=== PATIENT | female | born 1985 | race Caucasian/White ===

== ENCOUNTER 2021-07-28 10:52 | Emergency (ER) | payer MEDICARE, MEDICAID, SELFPAY ==
[2021-07-28 11:18] VITALS: BP 132/79; PULSE 100; RESP 19; TEMP 36.6; O2SAT 100; BMI 34.5
[2021-07-28 12:00] VITALS: BP 122/85; PULSE 98; RESP 18; TEMP 36.9; O2SAT 96
--- NOTE | 2021-07-28 12:06 | ED_ITS ---
HPI - Psych General Chief Complaint: Psychiatric Symptoms Stated Complaint: Crisis Time Seen by Provider: 07/28/21 12:04 Source: patient Mode of arrival: ambulatory Limitations: no limitations History of Present Illness HPI Narrative: 35-year-old female with a history of opiate use disorder, depression here with reports of feeling depressed and anxious after several recent losses. Patient is coming from [facility] where she is currently living after going through detox for OUD. She is on methadone 100 mg daily. Prior to this she was at [facility] for dual diagnosis. She is from the [facility] and her therapist and psychiatrist are out there. She missed her recent appointment with her psychiatrist and they did not refill her Klonopin. Her last dose of Klonopin was 6 days ago. Under review of PROPOSAL REVIEW ANALYST the patient did fill a 16 day prescription on July 05. Patient tells me she is also running low on her clonidine. She tells me that she lost her mother last year, this week has lost 2 friends to overdoses. She is feeling anxious and depressed but denies any suicidal or homicidal ideations. She has no physical complaints. Related Data Previous Rx's Medication Instructions Recorded clonazepam 0.5 mg tablet 0.5 mg PO BID PRN #8 tab 07/28/21 Allergies Allergy/AdvReac Type Severity Reaction Status Date / Time Unable to Assess Allergy Verified 07/28/21 12:37 Review of Systems Review of Systems: Yes all other systems are reviewed and are negative Constitutional: Constitutional: Reports no additional constitutional complaints, Denies body ache(s), Denies chills, Denies fever(s), Denies headache(s) and Denies weakness Eyes: Eyes: Reports no additional eye complaints and Denies change in vision ENT: Reports system reviewed and no additional complaints, except as documented, Denies dizziness, Denies headache(s), Denies nasal congestion, Denies nasal discharge and Denies neck pain Cardiovascular: Cardiovascular: Reports no additional cardiovascular complaints, Denies chest pain, Denies leg edema and Denies dyspnea Respiratory: Respiratory: Reports no additional respiratory complaints, Denies cough and Denies dyspnea Gastrointestinal: Gastrointestinal: Reports no additional gastrointestinal complaints, Denies abdominal pain, Denies diarrhea, Denies nausea and Denies vomiting Genitourinary: Genitourinary: Reports no additional female genitourinary complaints and Denies urinary incontinence Musculoskeletal: Musculoskeletal: Reports no additional musculoskeletal complaints, Denies back pain, Denies arthralgias, Denies joint swelling, Denies neck pain, Denies numbness and Denies tingling Integumentary/Breasts: Skin/Breast: Reports system reviewed and no additional complaints, except as docu and Denies rash Neurologic: Reports system reviewed and no additional complaints, except as documented, Denies Abnormal speech present, Denies dizziness, Denies headache(s), Denies numbness, Denies tingling and Denies weakness Psychiatric: Psychiatric: Reports anxiety, Reports depression, Denies homicidal ideation and Denies suicidal ideation [facility] Past Medical History Attestation statement: The following information was validated with the patient. Source: old records reviewed and nursing notes reviewed Medical History Anxiety Depression PTSD (post-traumatic stress disorder) Social History Social History Advance Directives: No Advance Directives Information Provided: No Patient : No Physical Exam Vital Signs: Vital Signs: Last Vital Signs Temp 98.4 F 07/28/21 12:00 Pulse 98 07/28/21 12:00 Resp 18 07/28/21 12:00 BP 122/85 07/28/21 12:00 Pulse Ox 96 07/28/21 12:00 BMI result Body Mass Index 34.5 Const: General: cooperative, healthy appearing, comfortable and no acute distress Orientation/consciousness: patient oriented x3 Limitations: no limitations HENMT: Head: Yes normal to inspection Ears: hearing grossly normal bilaterally General nose exam: Normal external nose present Face and sinus: Yes normal facial exam Mouth: Normal oral and palatal mucosa present Throat: Yes posterior oropharynx normal Eyes: General: appearance normal, both eyes and all related structures Pupils: Equal, round and reactive pupils present Neck: Neck: Yes normal visual inspection Chest: Chest palpation & inspection: normal inspection of the chest Resp: Effort & Inspection: normal respiratory effort Auscultation: clear to auscultation bilaterally Cardio: Rate: regular rate Rhythm: regular rhythm Peripheral pulses: Peripheral pulses 2+ throughout GI: Inspection: Yes normal to inspection Palpation (GI): Soft to palpation and nontender Auscultation: normal bowel sounds Back/Spine/Pelvis: Thoracic/Lumbar Spine: thoracic and lumbar spine normal to inspection Skin: General skin exam: no rashes or lesions noted Neuro: General: patient oriented x3, no focal motor deficits and normal sensation to monofilament Cranial nerves: Yes CN's II-XII intact bilaterally and Yes Equal, round and reactive pupils present Cognition (Neuro): normal cognition Speech: No Abnormal speech present Gait exam (Neuro): Normal gait present Motor exam (neuro): 5/5 motor strength present throughout Extrem: General: Yes normal to inspection Course Course Course Narrative: 35-year-old female here with reports of feeling anxious, depressed with multiple friends who recently. Also ran out of her HealthLokpin and is requesting a refill until she is able to see her psychiatrist. No suicidal or homicidal ideations. No physical complaints. Will obtain BENITEZ, have care team consult 155-care team spoke to staff at [facility]. patient made suicidal statements there this morning although now denying. utox +fentanyl/benzo although patient denies using she is sleepy and care team feels she needs to be evaluated when clinically sober. N consult placed. 1999-patient re-evaluated by care team and plan for discharge home. There are no reports of suicidal ideations. I did call and speak to the staff at the [facility]. The patient does take oral medications but this is supervised by staff at the center. They tell me the patient has adequate supply of clonidine. Her last dose of clonazepam was July 20 after the patient completed a 1 week self taper. Patient has no signs or symptoms concerning for benzo withdrawal. She tells me she was taking 1 mg b.i.d. prior to this taper, she is feeling quite anxious with multiple stressors. Therefore we discussed providing a small prescription for p.r.n. Klonopin. Plan for discharge back to the [facility]. Reviewed worrisome signs and symptoms of when to return to the emergency department. Comfortable discharge home. MDM - Psych Medical Records Attestation: I reviewed the patient's medical records. Lab Data Attestation: I reviewed the patient's lab results. Labs: Lab Results 07/28/21 Range/Units 13:23 Urine Opiates Screen Not Detected (Not Detect) Urine Fentanyl Screen POSITIVE H (Not Detect) Ur Barbiturates Screen Not Detected (Not Detect) Ur Phencyclidine Scrn Not Detected (Not Detect) Ur Amphetamines Screen Not Detected (Not Detect) U Benzodiazepines Scrn POSITIVE H (Not Detect) Urine Cocaine Screen Not Detected (Not Detect) U Marijuana (THC) Screen Not Detected (Not Detect) Discharge Plan Discharge Clinical Impression: Opioid use disorder, Acute anxiety Patient Disposition: Home, Self-Care Instructions: Anxiety (ED), Opioid Use Disorder (ED) Prescriptions: New clonazepam 0.5 mg tablet 0.5 mg PO BID PRN (Reason: anxiety) Qty: 8 0RF Referrals: Physician,Nonstaff [Primary Care Provider] - 2 days Interventions: ED Discharge Assessment Last Done: 07/28/21 19:04 Discharge Date/Time: 07/28/21 19:20
--- NOTE | 2021-07-28 13:15 | PC.NURSE ---
pt a&ox3, vss, denies HI/SI. pt had tapering off of psych meds under the supervision of her psychiatrist, increased life stressors over the past week (mother and friend passing away). would like to get back on her medication, but doesn't have an appt yet. pt has a hx of drug use, and has had an increased desire to use due to increased anxiety and lack of psych meds. pt has been clean for 9 days and is living at a [facility].
[2021-07-28 14:00] LABS: Amphetamine Screen Urine Not Detected (Not Detect); Barbiturates, Urine Not Detected (Not Detect); Benzodiazepines Screen Urine POSITIVE (Not Detect); Cannabinoid Screen Urine Not Detected (Not Detect); Cocaine Screen Urine Not Detected (Not Detect); Fentanyl, urine POSITIVE (Not Detect); Opiate Screen Urine Not Detected (Not Detect); Phencyclidine Screen Urine Not Detected (Not Detect)
--- NOTE | 2021-07-28 17:10 | MHC.CARE ---
1500 CARE Team met with patient in [facility] for interview; she was resting but woke quickly, was oriented and was engaged though appeared sedated and had some difficulty providing a thorough rational for why she was here and what she needed. Asked for printed resources for grief counseling and then stated she would go to a group through her outpatient providers via zoom. Reported that she took herself off of Klonopin and regretted that and would like a bridge prescription until she can speak to her psychiatrist. Patient explained that she lost her mother in 2019 and recently found out that her best friend and was emotional talking about that. Explained that she has been at the [facility] for [facility], did not go through a CSS or TSS which is the typical treatment process prior to this level of care and patient feels that she is unable to manage what they are asking her to do. Maintained that she is not suicidal and does not want to end her life though feels overwhelmed and hopeless. Several calls with [facility] staff, Instructional Support Assistant, Zora reported that patient reported to her this morning that she did not want to live anymore, doesn?t care anymore and has given up. This was concerning to staff who feel that patient?s mental health is still too fragile for this level of care, believe that she needs to in a CSS or TSS. Advised that patient has denied suicidal ideation, plan or intention. They advocated for a respite admission with the hope of giving them a few days to arrange a higher level of treatment. At this time patient is too tired for a comprehensive interview, she should be referred to [facility] Crisis with the goal of respite. If they are unable to evaluate patient here, she can discharge back to the program and arrange for a mobile or to bring patient to the [facility] office. Record Changer, Renee Jacobsen [facility] and ED provider, Gilda Huynh, MELLISSA and nursing staff all updated and in agreement with plan. [phone] Vamsi are the staff tonight at the [facility]
--- NOTE | 2021-07-28 17:16 | PC.NURSE ---
[facility] referral completed.
--- NOTE | 2021-07-28 19:27 | MHC.CARE ---
5:48 PM CARE team met with patient in 8 for follow up to consult?attempted earlier in the day, patient reports she was born in the [place] area, however raised?in the [place] area and graduated high school. She reports she is an only child and her father ? from an overdosed when she was 7 years old, she reports her mother in 2019. She reports she was placed at [facility] in [place] from [facility] over a week ago and relapsed on heroin IV last Sunday after 2 1/2 years of sobriety, she does go to the methadone clinic daily. She reports she recently stopped taking her klonopin abruptly 6 days ago shortly after arriving to [facility]. reports today she found out her best friend overdosed and passed and? and states I was upset this morning and really felt like using, I was crying . She reports staff at [facility] felt she should come to ER to talk to someone and get resources for Grief, staff also recommended a respite admission. Mallory has declined respite admission and is requesting to return to [facility], she denies any suicidal or homicidal ideation plan or intent, she denies any audio or visual hallucinations and does not appear to be responding to internal stimuli currently. She denies any prior history of suicide attempts or self harming behaviors and reports she feels safe returning back to her program. She reports she has outpatient providers at [facility] and sees [facility] for medications and has been set up with a new therapists and reports they also have grief groups via zoom she can participate in for additional support. CARE team called and spoke with [facility] staff Yvonne, she reports split and drum room supervisor Iveth wants to be called, CARE team called and discussed discharge plan back to program and Mallory will follow up with outpatient community providers. Gilda Huynh [employer] is aware of plan and in agreement with discharge.
== END 2021-07-28 19:20 | disposition home or self-care (01) ==
PROVIDERS: Nurse Practitioner Family; Emergency Provider Emergency Medicine
DX: F11.20 Opioid dependence, uncomplicated (principal); F32.A Depression, unspecified; F41.9 Anxiety disorder, unspecified; F43.10 Post-traumatic stress disorder, unspecified
CPT/HCPCS: 80307; 99284

== ENCOUNTER 2024-12-19 17:59 | Emergency (ER) | payer OTHER, SELFPAY ==
[2024-12-19 18:41] VITALS: BP 118/76; PULSE 86; RESP 16; TEMP 36.9; O2SAT 98
[2024-12-19 19:42] VITALS: BP 101/76; PULSE 87; TEMP 36.5; O2SAT 97
--- OUTSIDE RECORDS SUMMARY | 2024-12-19 19:56 | XMS_ITS | Clinical Summary ---
Author Organization [facility] Address [address] [place] [address] Care Team Providers Care Search Engine Optimization Manager Name Role Phone Myrna Haddad MD Primary Care Provider Source Comments PLEASE NOTE, if this patient is a minor, it may be UNLAWFUL to discuss sensitive information that is contained in these records (such as FAMILY PLANNING, MENTAL HEALTH or SUBSTANCE ABUSE) with the minor patient's parent or other person without the patient's specific authorization.[facility] Allergies Active Allergy Reactions Criticality Noted Date Comments Quetiapine 10/10/2023 Other Reaction(s): Unknown Level of certainty: Moderately Certain Medications SENNA 8.6 mg tabletIndications :Drug induced constipation Take 1 Tablet by mouth nightly at bedtime as needed for constipation 04/23/20 23 Active furosemide (LASIX) 20 mg tablet Take 1 Tablet by mouth once daily 90 Tablet 05/31/19 24 Active albuterol (PROVENTIL) 2.5 mg /3 mL (0.083 %) nebulizer solution Take 3 mL by nebulization every 6 (six) hours as needed for wheezing 90 mL 3 10/22/19 24 Active phenazopyridine (PYRIDIUM) 100 mg tabletIndications :Nephrolithiasis Take 1 Tablet by mouth 3 (three) times daily as needed (kidney stone pain) -- up to 3 days per month 30 Tablet 1 03/28/20 24 Active pyridostigmine (MESTINON) 60 mg tablet TAKE 1 TABLET BY MOUTH 3 TIMES A DAY NEEDED (MAX 3 DAYS PER MONTH 04/06/20 24 Active food supplemt, lactose-reduced (NUTRI-DRINK, ENSURE) liquidIndications :Chronic hepatitis C with cirrhosis ([facility]),Weight loss, unintentional Ensure shakes (or comparable brand), chocolate flavor. Drink 3 times daily to maintain weight. Dx B18.2,K74.60, R63.4 51257 mL 11 06/26/19 25 Active methadone 10 mg/5 mL solution Take 55 mL by mouth daily. 06/26/19 25 Active albuterol HFA (VENTOLIN HFA) 90 mcg/actuation inhalerIndication s:Simple chronic bronchitis ([facility]) INHALE 2 PUFFS BY MOUTH EVERY 4-6 HOURS NEEDED FOR SHORTNESS OF BREATH AND WHEEZING 18 g 1 07/07/19 25 Active cholecalciferol (VITAMIN D-3) 25 mcg (1,000 unit) tabletIndications :Hypercalcemia Take 1 Tablet by mouth once daily 90 Tablet 5 07/07/19 25 Active cloNIDine (CATAPRES) 0.1 mg tabletIndications :Chronic post-traumatic stress disorder Take 1 Tablet by mouth 2 (two) times daily 60 Tablet 2 07/07/19 25 Active hydrOXYzine HCL (ATARAX) 25 mg tabletIndications :Generalized anxiety disorder Take 1 Tablet by mouth 3 (three) times daily as needed for anxiety 90 Tablet 3 07/07/19 25 Active lactulose (CHRONULAC) 10 gram/15 mL solution Take 15 mL by mouth once daily 473 mL 5 07/07/19 25 Active triamcinolone (KENALOG) 0.025 % ointmentIndicatio ns:Venous stasis dermatitis of both lower extremities Apply topically once daily as needed (lower leg rash) 30 g 3 07/07/19 25 Active sertraline (ZOLOFT) 50 mg tabletIndications :Major depressive disorder, recurrent episode, in partial remission ([facility]) Take 2 Tablets by mouth once daily 90 Tablet 5 07/07/19 25 Active naloxone (NARCAN) 4 mg/actuation nasal sprayIndications: Opioid dependence on agonist therapy ([facility]) [place] 4 mg (0.1 mL) into 1 nostril upon signs of opioid overdose. Call 911. Repeat x 1 in other nostril in 2-3 minutes if no response 2 Each 3 07/07/19 25 Active nadoloL (CORGARD) 20 mg tabletIndications :Portal hypertension ([facility]),Pain due to splenomegaly Take 0.5 Tablets by mouth once daily 45 Tablet 1 07/07/19 25 Active lidocaine (LIDODERM) 5 % patchIndications: chronic back pain, spleen pain Place 1 to 2 patches to clean/dry/hairle ss skin where most painful and leave on for 12 hours. Remove patches and wait 12 hours before putting on a new patch. Indications: chronic back pain, spleen pain 60 Patch 2 07/07/19 25 Active clonazePAM (KLONOPIN) 0.5 mg tabletIndications :Benzodiazepine dependence, episodic ([facility]) Take 1 Tablet by mouth 2 (two) times daily as needed for anxiety. 28 Tablet 1 10/14/19 25 Active gabapentin (NEURONTIN) 800 mg tablet Take 1 Tablet by mouth 3 (three) times daily. 84 Tablet 2 10/10/19 25 Active prazosin (MINIPRESS) 2 mg capsule Take 2 Capsules by mouth daily. 28 Capsule 10/28/19 25 Active doxepin (SINEQUAN) 100 mg capsule Take 1 Capsule by mouth daily. 14 Capsule 10/28/19 25 Active prazosin (MINIPRESS) 5 mg capsuleIndication s:Chronic post-traumatic stress disorder,Major depressive disorder, recurrent episode, in partial remission ([facility] V24) Take 1 Capsule by mouth nightly at bedtime. 14 Capsule 10/28/19 25 Active promethazine (PHENERGAN) 12.5 mg tabletIndications :Chronic nausea Take 1 Tablet by mouth every 8 (eight) hours as needed for nausea. 42 Tablet 12/19/19 25 Active promethazine (PHENERGAN) 12.5 mg tabletIndications :Chronic nausea Take 1 Tablet by mouth every 8 (eight) hours as needed for nausea. 42 Tablet 10/28/19 25 025 Discontin ued(Reord er (E-Cancel Not Sent)) Active Problems Patient Care Coordination No te Formatting of this note migh t be different from the original. Patient has given permission for communication (verbal and signed consent--scanned): [facility] [place] [facility] [phone] x [phone] (previously Deborah ) -Dr. Richard Johnson (medical billing coder) Problem Noted Date Diagnosed Date Sheltered homelessness 06/26/2024 Assessment & Plan (07/01/2024 10:17 PM EST): Filled out form for housing. Loose stools 06/02/2024 Overview (06/02/2024): Only identified localizing symptom with weight loss. Assessment & Plan (06/02/2024 4:52 PM EST): Only identified localizing symptom with weight loss. Chronic leukopenia 05/29/2024 Overview (06/02/2024): Chronic low WBC and Plt, intermittent low RBC/Hgb. I/s/o chronic EtOH use and cirrhosis. Have tried multiple times to get her in with Heme, referring again today Assessment & Plan (06/02/2024 4:48 PM EST): As above. Weight loss, unintentional 03/19/2024 Overview (07/01/2024): Weight has finally stabilized. CT A/P and liver US in Fall 2023 w/o sign of malignancy. Labs showing WBC and Plt suppression but RBC now in normal range. TB, HIV and other infectious testing has been negative. Recommend CXR, IBD and malabsorption testing, Heme consult. Weight 05/28/24 158 lb 4 oz (71.8 kg) 03/19/24 173 lb (78.5 kg) 10/10/23 215 lb (97.5 kg) 08/09/23 213 lb (96.6 kg) 06/25/23 210 lb (95.3 kg) 05/23/23 210 lb (95.3 kg) 12/27/22 238 lb (108 kg) 10/12/22 246 lb (111.6 kg) 09/21/22 245 lb (111.1 kg) 08/10/22 249 lb (112.9 kg) CT A/P and liver US in 2022 w/o sign of malignancy Office Visit on 03/19/2024 Component Date Value Ref Range Status WBC 03/19/2024 3.3 (L) 4.0 - 11.0 K/UL Final RBC 03/19/2024 4.38 4.00 - 5.20 M/UL Final HGB 03/19/2024 12.2 11.8 - 16.0 G/DL Final HCT 03/19/2024 39.8 36.0 - 47.0 % Final MCV 03/19/2024 91 80 - 97 FL Final MCH 03/19/2024 27.9 27.0 - 33.0 PG Final MCHC 03/19/2024 30.7 (L) 32.0 - 36.0 G/DL Final PLATELET 03/19/2024 54 (L) 150 - 400 K/UL Final RBC DIST WIDTH 03/19/2024 15.4 (H) 12.0 - 14.5 % Final NRBC (PERCENT) 03/19/2024 1.5 (H) 0.0 /100 WBC Final ABSOLUTE NRBC 03/19/2024 0.05 (H) 0.0 K/UL Final POLY 03/19/2024 52 40 - 75 % Final LYMPH 03/19/2024 34 15 - 54 % Final MONO 03/19/2024 6 4 - 13 % Final EOS 03/19/2024 7 0 - 7 % Final BASO 03/19/2024 1 0 - 1 % Final ABSOLUTE POLY 03/19/2024 1.7 (L) 1.8 - 7.0 K/UL Final ABSOLUTE LYMPH 03/19/2024 1.1 1.1 - 3.5 K/UL Final ABSOLUTE MONO 03/19/2024 0.2 0.2 - 0.9 K/UL Final ABSOLUTE EOS 03/19/2024 0.2 0.0 - 0.6 K/UL Final ABSOLUTE BASO 03/19/2024 0.0 0.0 - 0.1 K/UL Final IMMATURE GRANULOCYTES (PERCENT) 03/19/2024 0 0 - 1 % Final ABSOLUTE IMMATURE GRANULOCYTES 03/19/2024 0.0 0.00 - 0.06 K/UL Final ALBUMIN 03/19/2024 3.9 3.5 - 5.0 G/DL Final BILIRUBIN, TOTAL 03/19/2024 0.7 0.3 - 1.2 MG/DL Final CALCIUM 03/19/2024 10.9 (H) 8 - 10.5 MG/DL Final CO2 03/19/2024 27.0 19 - 28 MMOL/L Final CHLORIDE 03/19/2024 106 98 - 110 MMOL/L Final GLUCOSE 03/19/2024 83 70 - 100 MG/DL Final ALKALINE PHOSPHATASE, TOTAL 03/19/2024 103 (H) 25 - 100 U/L Final POTASSIUM 03/19/2024 3.5 3.1 - 5.3 MMOL/L Final PROTEIN, TOTAL 03/19/2024 7.5 6.8 - 8.6 G/DL Final SODIUM 03/19/2024 140 135 - 145 MMOL/L Final ALT(SGPT) 03/19/2024 15 9.0 - 67.0 U/L Final AST(SGOT) 03/19/2024 29 13 - 39 U/L Final UREA NITROGEN (BUN) 03/19/2024 9 7 - 25 MG/DL Final CREATININE 03/19/2024 0.90 0.5 - 1.1 MG/DL Final ESTIMATED GFR 03/19/2024 84 >59 mL/min/1.73_m2 Final ANION GAP WITHOUT POTASSIUM 03/19/2024 7 7 - 16 Final HEPATITIS C ANTIBODY 03/19/2024 REACTIVE (A) NON-REACTIVE Final HIV AG/AB COMBINED QUALITATIVE 03/19/2024 NON-REACTIVE NON-REACTIVE Final SYPHILIS IGG/IGM SCREEN W/ REFLEX * 03/19/2024 NON-REACTIVE NON-REACTIVE Final TSH 03/19/2024 1.05 0.35 - 4.9 uIU/ML Final AFP (ALPHA-FETOPROTEIN) 03/19/2024 2.9 0 - 8.0 ng/mL Final CRP CARDIO 03/19/2024 1.5 0 - 5 MG/L Final PT 03/19/2024 16.4 (H) 9.2 - 13.5 SEC Final INR 03/19/2024 1.44 (H) 0.83 - 1.20 Final PTT 03/19/2024 33 27 - 37 SEC Final NIL 03/19/2024 0.175 IU/mL Corrected TB 1 AG-NIL 03/19/2024 0.00 IU/mL Corrected TB 2 AG-NIL 03/19/2024 0.00 IU/mL Corrected MITOGEN-NIL 03/19/2024 9.825 IU/mL Corrected QFT PLUS RESULT 03/19/2024 Negative, Mycobacterium tuberculosis infection NOT likely. Negative, Mycobacterium tuberculosis infection NOT likely. TEXT Corrected HCV RNA CONFIRMATORY BY REAL TIME * 03/19/2024 No current HCV infection. No current HCV infection. Final HCV RNA QUANTITATIVE BY REAL TIME * 03/19/2024 Target Not Detected Target Not Detected IU/mL Final HCV RNA QUANTITATIVE LOG VALUE 03/19/2024 Target Not Detected Target Not Detected LOG IU/mL Final ] FIB-4 Score: 4.54 at 05/28/2024 2:50 PM Calculated from: SGOT/AST: 28 U/L at 05/28/2024 2:50 PM SGPT/ALT: 13 U/L at 05/28/2024 2:50 PM Platelets: 65 K/UL at 05/28/2024 2:50 PM Age: 38 years MELD-Na score: 10 at 03/19/2024 2:16 PM MELD score: 10 at 03/19/2024 2:16 PM Calculated from: Serum Creatinine: 0.9 MG/DL (Using min of 1 MG/DL) at 03/19/2024 2:16 PM Serum Sodium: 140 MMOL/L (Using max of 137 MMOL/L) at 03/19/2024 2:16 PM Total Bilirubin: 0.7 MG/DL (Using min of 1 MG/DL) at 03/19/2024 2:16 PM INR(ratio): 1.44 at 03/19/2024 2:16 PM Age: 38 years Assessment & Plan (07/01/2024 10:22 PM EST): Weight has finally stabilized. Weight 06/26/24 160 lb (72.6 kg) 05/28/24 158 lb 4 oz (71.8 kg) 03/19/24 173 lb (78.5 kg) 10/10/23 215 lb (97.5 kg) 08/09/23 213 lb (96.6 kg) CT A/P, endoscopy, and liver US in Fall 2023 w/o sign of malignancy. Labs showing WBC and Plt suppression but RBC now in normal range. TB, HIV and other infectious testing has been negative. Recommend CXR, IBD and malabsorption testing, Heme consult. She again did not complete labs today. LMN and Rx written for nutritional supplement shakes. Messaged her GI doc about colonoscopy which was recommended previously but never completed. Assessment & Plan (06/02/2024 4:45 PM EST): Weight has continued to downtrend despite abstinence from DIONISIO. CT A/P and liver US in 2022 w/o sign of malignancy. Labs showing WBC and Plt suppression but RBC now in normal range. TB, HIV and other infectious testing has been negative. Recommend CXR, IBD and malabsorption testing, Heme consult. Assessment & Plan (03/30/2024 7:12 PM EST): Weight 03/19/24 173 lb (78.5 kg) 10/10/23 215 lb (97.5 kg) 08/09/23 213 lb (96.6 kg) 06/25/23 210 lb (95.3 kg) 05/23/23 210 lb (95.3 kg) 12/27/22 238 lb (108 kg) 10/12/22 246 lb (111.6 kg) 09/21/22 245 lb (111.1 kg) 08/10/22 249 lb (112.9 kg) 05/31/22 244 lb (110.7 kg) Significant weight loss > 50 lbs in past year. Recent US with no e/o HCC, though FibroScan did show significant cirrhosis. Labs ordered to further eval --no HIV, HCV reinfection, hyperthyroidism, TB. Offered Nutritional shakes to supplement. Offered specialist referral. Inadequate material resources 10/14/2023 Overview (10/14/2023): TAP application completed 09/2023; Working with [facility] advocate on housing 2 month waiting list for now Nephrolithiasis 08/13/2023 Portal hypertensive gastropathy ([facility]) 08/06/2023 Overview (03/30/2024): Seen on EGD 02/2024. Recommend nonselective beta francia (nadolol or propranolol). F/up with GI. EGD 02/2024 Food was found in the upper third of the esophagus. advanced to stomach with scope Mild desquamitative esophagitis was found in the entire esophagus. Biopsies were taken with a cold forceps for histology. Scattered mild inflammation characterized by erythema was found in the gastric fundus. Biopsies were taken with a cold forceps for histology. The examined duodenum was normal. Impression: - Food in the upper third of the esophagus. - Mild desquamitation esophagitis. Biopsied. No varices seen. - Gastritis vs portal hypertensive gastropathy. Biopsied. - Normal examined duodenum. Recommendation: - Await pathology results. - Return to liver clinic- [facility]. Reschedule colonoscopy. Final Diagnosis A. GASTRIC FUNDUS BIOPSY: Corpus type mucosa showing chronic gastritis, inactive. There is no evidence of atrophy or intestinal metaplasia. No H. pylori-like organisms seen on H&E stain. B. MID ESOPHAGUS BIOPSY: Squamous mucosa with slightly increased intraepithelial lymphocytes, not otherwise specified. >>OVERVIEW FOR PORTAL HYPERTENSION ([facility]) WRITTEN ON 10/14/2023 3:36 PM BY MYRNA HADDAD MD Recommend nonselective beta francia (nadolol or propranolol) and EGD Assessment & Plan (07/01/2024 10:17 PM EST): Seen on EGD 02/2024. Recommend nonselective beta francia (nadolol or propranolol). F/up with GI. Assessment & Plan (03/30/2024 6:56 PM EST): >>ASSESSMENT AND PLAN FOR PORTAL HYPERTENSION ([facility]) WRITTEN ON 08/13/2023 5:01 PM BY MYRNA HADDAD MD Recommend nonselective beta francia, EGD, and GI f/up -- referral already placed. Assessment & Plan (03/30/2024 6:56 PM EST): >>ASSESSMENT AND PLAN FOR PORTAL HYPERTENSION ([facility]) WRITTEN ON 10/14/2023 3:36 PM BY MYRNA HADDAD MD Recommend nonselective beta francia (nadolol or propranolol) and EGD to eval for varices. Has upcoming GI appointment. Assessment & Plan (03/30/2024 6:56 PM EST): Seen on EGD 02/2024. Recommend nonselective beta francia (nadolol or propranolol). F/up with GI. Alcoholic cirrhosis ([facility]) 05/29/2023 Overview (07/01/2024): EtOH+HCV (latter treated) +portal HTN/splenomegaly CT A/P 01/2023 with massive splenomegaly, small ascites and e/o pHTN. Previously on naldolol but dc'd due to soft BP; restart 07/2023 Referred back to GI multiple times CT 07/25/23: Cirrhotic liver morphology with sequelae of portal hypertension including massive splenomegaly, small volume ascites, small recanalized periumbilical vein, and dilated main portal and splenic veins. CT 07/2023: 1. Cirrhotic liver morphology with sequelae of portal hypertension including massive splenomegaly, small volume ascites, small recanalized periumbilical vein, and dilated main portal and splenic veins. 2. Incompletely evaluated cystic structure in the right adnexa measuring 4.2 cm. This is statistically likely benign but would be better evaluated with pelvic ultrasound on a nonemergent basis. 3. Distended bladder. Recommend clinical correlation to exclude urinary retention. 4. Punctate nonobstructing right renal calculi. CT abd 02/07/23 showed: 1. Morphologic features compatible with cirrhosis. Patent portal vein. 2. Massive splenomegaly, small amount of ascites, and recannulized periumbilical vein compatible with portal hypertension. Assessment & Plan (07/01/2024 10:18 PM EST): EtOH+HCV (latter treated) +portal HTN/splenomegaly CT A/P 01/2023 with massive splenomegaly, small ascites and e/o pHTN. Rec GI f/up Assessment & Plan (06/02/2024 4:50 PM EST): EtOH+HCV (latter treated) +portal HTN/splenomegaly Needs to f/up with GI Assessment & Plan (08/13/2023 5:07 PM EDT): EtOH+HCV (latter treated) +portal HTN/splenomegaly Previously on naldolol but d/c'd due to soft BP; restart 07/2023 Referred multiple times to GI -- scheduled 10/30 @ 8am Assessment & Plan (05/29/2023 9:38 PM EST): With portal HTN and massive splenomegaly. Has not tolerated nadolol due to hypotension. Repeat CXR to assess effusion; consider increasing Lasix or spironolactone. Repeatedly referred to GI, again today. Abnormal finding on lung imaging 05/29/2023 Overview (05/29/2023): 05/2023 CXR @ [facility]: borderline cardiomegaly w/ mild vascular congestion and linear opacity in R middle lobe. TTE 02/06/23 showed: - LV is normal in size and systolic function. LVEF is 55 to 60%. - RV is normal in size and function - No hemodynamically significant valvular heart disease on this study - Insufficiency TR jet to calculate RVSP. CT chest 02/06/23 showed: 1. Slight decrease in size of a large left pleural effusion with associated partial atelectasis of the left lower lobe. 2. No definite intrathoracic mass or lymphadenopathy visualized, although underlying lesions could be obscured secondary to large left-sided pleural effusion and left lower lobe atelectasis. A repeat chest CT study following improvement in the patient's pleural effusion is recommended to exclude underlying lesions. 3. Mildly nodular hepatic contour with small amount of ascites, splenomegaly, and partially imaged enlarged upper abdominal lymph nodes. Findings may be related to underlying cirrhosis. A contrast-enhanced CT study of the abdomen and pelvis is recommended for further evaluation of these findings. Large pleural effusion 02/04/2023 Assessment & Plan (05/29/2023 9:42 PM EST): Appears secondary to cirrhosis, needs CXR to assess resolution. Plantar fasciitis, bilateral 10/22/2022 Chronic nausea 08/15/2022 Overview (06/02/2024): 07/2022: I/s/o MAT use and splenomegaly. Refilled Promethazine with caution, as she has a h/o sedation. Assessment & Plan (06/02/2024 4:48 PM EST): I/s/o MAT use and splenomegaly. Refilled Promethazine with caution, as she has a h/o sedation. Assessment & Plan (08/13/2023 4:59 PM EDT): I/s/o methadone use and splenomegaly. Caution with promethazine as this has caused sedation at higher doses. Assessment & Plan (06/26/2023 4:00 PM EST): I/s/o MAT. Reduced promethazine dose. Assessment & Plan (05/29/2023 9:57 PM EST): I/s/o methadone use. Trying to reduce promethazine use. Assessment & Plan (08/15/2022 11:50 AM EDT): I/s/o methadone use. Refilled Promethazine, agree to increase frequency of dosing. Secondary amenorrhea 06/04/2022 Overview (06/04/2022): 05/2022: 9+ months w/o menses, unsure exactly how long.Not on any hormonal control, no sex in 2 years. LH 05/31/2022 0.2 MIU/ML Final FSH 05/31/2022 2.3 MIU/ML Final TSH 05/31/2022 2.32 0.35 - 4.9 uIU/ML Final PROLACTIN 05/31/2022 15.1 5.2 - 26.5 NG/ML Final Assessment & Plan (06/04/2022 5:08 PM EST): Longest intermenstrual time for patient, ~9 months at present. No h/o intercourse; recommended Hcg test given h/o DIONISIO could impair memory, but patient has been off drugs/EtOH x 5 months and is very sure of no sex so she declines--order placed for future lab if she agrees later. Perimenopause considered, though LH/FSH are not in the range for this. No e/o thyroid dysfunction with normal TSH. No hyperprolactinemia on labs. Estrogen and testosterone not drawn on initial labs, will draw at next visit. Liver dysfunction would be expected to cause high estrogen. PCOS possible, recommend pulsed progesterone for endometrial protection. Venous stasis dermatitis of both lower extremiti es 03/07/2022 Overview (03/07/2022): Combination venous stasis and likely edema related to liver disease. Recommend compression socks, PRN topical steroid, and treatment of underlying liver disease. Assessment & Plan (03/07/2022 7:34 PM EDT): Combination venous stasis and likely edema related to liver disease. Recommend compression socks, PRN topical steroid, and treatment of underlying liver disease. Chronic pain of right knee 03/07/2022 Overview (03/07/2022): Summer/fall 2021 Had steroid injection with Sports Med at [facility] PT recommended Assessment & Plan (10/22/2022 1:51 PM EDT): Has f/up with Sports Med tomorrow, patient defers intervention until then. Refilled NSAID for PRN use and recommend heat and gentle ROM exercises. Consider formal PT. Assessment & Plan (03/07/2022 7:37 PM EDT): Sports Med note says patient referred by PCP, but I did not refer and had no knowledge of this referral before today. Assume this is just their standard note template. I would typically recommend trial of PT before injection, but since this was already done I would now recommend injection Former light tobacco smoker 03/07/2022 Overview (03/30/2024): Tobacco History Tobacco Use Smoking Status Former Current packs/day: 0.00 Average packs/day: 0.5 packs/day for 16.4 years (7.6 ttl pk-yrs) Types: Cigarettes Start date: 05/14/2007 Quit date: 10/13/2023 Years since quittin.4 Smokeless Tobacco Never Tobacco Comments 3 cig/day Assessment & Plan (03/30/2024 6:51 PM EST): Congratulated her on stopping and offered support. Assessment & Plan (12/27/2022 7:25 PM EDT): Discussed this is contributing to pulmonary symptoms, encouraging cessation. Assessment & Plan (03/07/2022 7:28 PM EDT): Discussed history and her plans for cessation. Brief intervention done (>3 min, <10min). Referred to [employer]. Alcohol use in remission ([facility]) 11/04/2021 Overview (06/04/2022): Last use 12/2021 Binge drinking starting at age 16 Assessment & Plan (05/29/2023 9:40 PM EST): Continue to support in journey. Assessment & Plan (09/26/2022 6:07 PM EDT): Remains in remission (sober). Assessment & Plan (06/04/2022 4:54 PM EST): Binge drinking starting at age 16. Last drink 5mo ago. Congratulated her. Assessment & Plan (03/07/2022 7:22 PM EDT): Stable in sober house. Discussed barriers and relapse risks. Thrombocytopenia ([facility] V24) 03/02/2021 Overview (06/02/2024): Chronic low WBC and Plt, intermittent low RBC/Hgb. I/s/o chronic EtOH use and cirrhosis. Trying to get her in with Heme. Lab Results Component Value Date WBC 3.2 (L) 05/28/2024 NEUTROPHILS 2.0 05/28/2024 LYMPHOCYTES 0.9 (L) 05/28/2024 RBC 4.49 05/28/2024 HGB 12.2 05/28/2024 HCT 40.3 05/28/2024 MCV 90 05/28/2024 MCH 27.2 05/28/2024 MCHC 30.3 (L) 05/28/2024 RDW 16.0 (H) 05/28/2024 PLATELETS 65 (L) 05/28/2024 MONOCYTES 0.1 (L) 05/28/2024 EOSINOPHILS 0.2 05/28/2024 BASOPHILS 0.0 05/28/2024 Lab Results Component Value Date WBC 3.3 (L) 03/19/2024 NEUTROPHILS 1.7 (L) 03/19/2024 LYMPHOCYTES 1.1 03/19/2024 RBC 4.38 03/19/2024 HGB 12.2 03/19/2024 HCT 39.8 03/19/2024 MCV 91 03/19/2024 MCH 27.9 03/19/2024 MCHC 30.7 (L) 03/19/2024 RDW 15.4 (H) 03/19/2024 PLATELETS 54 (L) 03/19/2024 MONOCYTES 0.2 03/19/2024 EOSINOPHILS 0.2 03/19/2024 BASOPHILS 0.0 03/19/2024 WBC 3.26, RBC 3.78 & PLY 59. PLT has nba decreased dating back to 2020.Appears due to ETOH abuse and . Not previously listed on problems list. 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 Not on any meds that should cause low platelets. No other cell lines impacted to suggest leukemia. ITP also possible, but no other symptoms of this. Have been trying to get her in with Hematology, but [employer] and transportation have been barriers. 01/2018 195 01/2019 167 03/2019 128 01/2020 88 06/2020 98 01/2021 76 02/2021 79 12/2021 59 05/2022 57 09/2022 52 12/2022 66 Assessment & Plan (06/02/2024 4:45 PM EST): Chronic low WBC and Plt, intermittent low RBC/Hgb. I/s/o chronic EtOH use and cirrhosis. Have tried multiple times to get her in with Heme, referring again today. Assessment & Plan (03/30/2024 6:54 PM EST): >>ASSESSMENT AND PLAN FOR THROMBOCYTOPENIA ([facility]) WRITTEN ON 03/02/2021 9:47 PM BY MYRNA HADDAD MD Lab review after visit shows platelet count downtrending, most likely secondary tochronic Hep C and likely splenic sequestration with chronic liver disease. Not on any meds that should cause low platelets. Will need additional w/u to r/o SLE (h/o +KEAGAN) or other causes (such as vitamin deficiency). Malignancy lower likelihood but still on differential, will need updated abdominal imaging. 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 HIV - (GC/chlamydia, HCV, syphilis) - Sexually active AFAB <age 24 - All persons >25 with high risk for infection No results found for: CHLAMYDIA Not Found TB Screening: Consider screening if from high risk/endemic area. Consider QuantGOLD if history of BCG vaccine. TB Risk Assessment: No data to display PPD: No PPD Quant: Lab Results Component Value Date QUANTIFERON 03/19/2024 Negative, Mycobacterium tuberculosis infection NOT likely. Colorectal Cancer: Reviewed the current recommendations for CRC screening (as of 2018, age 45-75 with colonoscopy q10yrs vs FIT annually unless abnormal, not recommended >85yo). Evaluated for family or personal history of CRC to necessitate earlier/extended screening. Last colonoscopy (if any): Last FIT (if any): Lung cancer: Start at age 55 if current/former smoker with 20+ pack years history and last use within 15 years. Tobacco History Tobacco Use Smoking Status Former Current packs/day: 0.00 Average packs/day: 0.5 packs/day for 16.4 years (7.6 ttl pk-yrs) Types: Cigarettes Start date: 05/14/2007 Quit date: 10/13/2023 Years since quittin.4 Smokeless Tobacco Never Tobacco Comments 3 cig/day Cervical Cancer: If applicable to patient's anatomy, reviewed the current [facility]/ACOG/USPSTF/SLIM recommendations for cervical cancer screening, and their differences: USPSTF & [facility]: Start at 21yo, cytology only q3 years until 25yo, then co-testing q5 years. ACOG: same as USPSTF, but can also do HPV-only testing q5 years after 30yo SLIM: Starting at 25yo, HPV-only testing q 5 years through 65yo; co-testing acceptable if HPV only testing not available. Consensus on when to stop: ok to stop at 65yo if no h/o CIN2+ in past 25 years and documented adequate negative screening in the 10 years prior, and not immunosuppressed. Also if life-limiting medical conditions. This patient has no history of abnormal Pap Most recent Pap(s) on record: none-- has repeatedly declined Breast Cancer: If applicable to patient's anatomy, reviewed current breast cancer screening recommendations. This patient does not have a family history of breast cancer or other high risk indication for additional screening. Patients Assigned Female at : - [place] [employer] recommends no clinical breast exams; annual mammogram age 45-55, biennial thereafter if life expectancy >10 years -[employer] recommends annual mammograms from age 40-74 years -USPSTF recommends mammograms every other year from age 40-74 years - AAFP recommends biennial mammogram ages 50-74yo, unclear benefit >75yo - ACOG recommends discussion of when to start at age 40-50 years. Transfeminine patients who have used estrogen 5+ years: annual/biennial mammograms starting at age 50. Transmasculine patients: - If h/o mastectomy/reconstructive surgery: annual chest wall and axillary exams starting at age 50. - If h/o chest reduction only: annual/biennial mammograms starting at age 50. - If no top surgery, follow AFAB/cis guidelines above Last mammogram on record (if any): Not indicated at patient's age. Bone Density: Consider DEXA for persons assigned female at and 65+yo with high risk of osteoporosis: -Risks include: smoking, thin/petite habitus, long-term steroids, >3 alcoholic drinks/day, RA, family history Prior bone density test: Not indicated at patient's age. Prostate cancer screening: If applicable to patient's anatomy, engaged in shared decisionmaking and reviewed the current [place] [employer] and USPSTF recommendations for prostate cancer screening (age 55-70 discuss risks/benefits of PSA, no JOSEF) and AAFP recommendation against PSA. Anatomically n/a Testicular cancer screening: If applicable to patient's anatomy, reviewed the current USPSTF and AAFP recommendations against screening physical exam. Self exam recommended, report any new findings to PCP. Anatomically n/a Assessment & Plan (03/30/2024 6:45 PM EST): As above. Treated hepatitis C, with cirrhosis (HCC-CMS) Overview (03/30/2024): Diagnosed in 2007 while incarcerated. Lost to follow-up multiple times i/s/o DIONISIO or relationship issues. S/p 12 weeks of Epclusa Spring 2022. EGD done 02/2024 for variceal screening. We have discussed relapse and reinfection prevention. Recommend q6mo US for HCC screening -- managed by [facility] Office Visit on 03/19/2024 Component Value Ref Range Status ALBUMIN 3.9 3.5 - 5.0 G/DL Final BILIRUBIN, TOTAL 0.7 0.3 - 1.2 MG/DL Final CALCIUM 10.9 (H) 8 - 10.5 MG/DL Final CO2 27.0 19 - 28 MMOL/L Final CHLORIDE 106 98 - 110 MMOL/L Final GLUCOSE 83 70 - 100 MG/DL Final ALKALINE PHOSPHATASE, TOTAL 103 (H) 25 - 100 U/L Final POTASSIUM 3.5 3.1 - 5.3 MMOL/L Final PROTEIN, TOTAL 7.5 6.8 - 8.6 G/DL Final SODIUM 140 135 - 145 MMOL/L Final ALT(SGPT) 15 9.0 - 67.0 U/L Final AST(SGOT) 29 13 - 39 U/L Final UREA NITROGEN (BUN) 9 7 - 25 MG/DL Final CREATININE 0.90 0.5 - 1.1 MG/DL Final HCV RNA CONFIRMATORY BY REAL TIME * No current HCV infection. No current HCV infection. 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 Name Martha Fasting False Indication Chronic hepatitis C Probe Size M Hepatitis C Assessment: Risk factors: OUD, incarceration Labs: HCV genotype: 1A HCV viral load: 02/06/18: 1,539,651 (6.19 log IU/mL) HBV surface Ag: nonreactive as of 11/05/21 HBV surface Ab: pos/immune as of 11/05/21 HAV: pos/immune as of 11/05/21 AFP: 6.4 CBC: Lab Results Component Value Date WBC 3.4 (L) 10/12/2022 NEUTROPHILS 1.7 (L) 10/12/2022 LYMPHOCYTES 1.3 10/12/2022 RBC 4.14 10/12/2022 HGB 11.7 (L) 10/12/2022 HCT 37.7 10/12/2022 MCV 91 10/12/2022 MCH 28.3 10/12/2022 MCHC 31.0 (L) 10/12/2022 RDW 16.3 (H) 10/12/2022 PLATELETS 54 (L) 10/12/2022 MONOCYTES 0.2 10/12/2022 EOSINOPHILS 0.2 10/12/2022 BASOPHILS 0.0 10/12/2022 CMP: Lab Results Component Value Date NA 140 09/15/2022 K 4.4 09/15/2022 CHLORIDE 110 09/15/2022 CALCIUM 10.5 09/15/2022 BUN 12 09/15/2022 EGFR 88 09/15/2022 CREATININE 0.87 09/15/2022 PROTEIN 7.6 10/12/2022 ALBUMIN 3.4 (L) 10/12/2022 AST 28 10/12/2022 ALT 18 10/12/2022 ALKPHOS 108 (H) 10/12/2022 BILIRUBIN 0.5 10/12/2022 GLUCOSE 94 09/15/2022 AST/ALT Lab Results Component Value Date PROTEIN 7.6 10/12/2022 AST 28 10/12/2022 ALT 18 10/12/2022 ALKPHOS 108 (H) 10/12/2022 DIRECTBILI 0.3 10/12/2022 120/103 09/2018, 212/156 03/2019 Alk Phos 182 09/2018, 171 03/2019 Immunoglobulins: IgG 2035 (700-1600), IgA 189 (70-400), IgM 334 (46-304) PT/INR/PTT: Lab Results Component Value Date INR 1.33 (H) 05/31/2022 PT 15.6 (H) 05/31/2022 [facility] screen: 1:80 speckled; consider testing FOOTE, DIRECTOR LABOR STANDARDS, SSA, SSB, AND SCL-70 Iron/TIBC: Fe 158 (51-146); TIBC 322 (240-450) Ferritin: 120 (10-109) Fibrosure 03/17/[address] [facility] -- F1 fibrosis, HCV quant 1,810,000 Fibroscan 09/01/16: Score 9.6 kPa, consistent with stage 2-3. IQR: 1.2 kPa. IQR/med(%): 13%. Number of attempts: 12 FibroTest-Actitest Panel 12/2017: F3 advanced fibrosis; A1 minimal necroinflammatory activity FibroTest-Actitest Panel 03/02/22: Fibrosis stage F3 (advanced fibrosis); necroinflammatory grade F3 (advanced fibrosis) Vaccines: Hep A: 10/28/08, 03/20/18, 04/02/19 --> immune 02/15/22 Hep B: immune 02/15/22 Pneumo 23: 01/29/2009 Tdap: 03/20/18 Imagin07/25/23 CT @ [facility]; CT 07/2023: Cirrhotic liver morphology with sequelae of portal hypertension including massive splenomegaly, small volume ascites, small recanalized periumbilical vein, and dilated main portal and splenic veins. 02/17/23 @ [facility]: 1. Cirrhosis, no focal suspicious lesion. 2. Interval increase in spleen size measuring 22.5 cm. 11/26/18 @ [facility]: Liver has a coarsened echotexture with increased echogenicity compatible with chronic liver disease. No focal solid mass or dilated intrahepatic ducts. 09/01/16 @ [facility]: Hepatic parenchyma appears within normal limits. The contour of the liver is smooth. There is no focal liver mass. The main portal vein is patent with hepatopetal flow. There is no ascites. [REPORT SCANNED] 05/17/[address] [facility]: No concerning focal hepatic lesion. Preserved direction of flow towards the liver within the main hepatic vein. Borderline splenomegaly with the spleen measuring 14.1 cm craniocaudal dimension. Assessment & Plan (07/01/2024 10:16 PM EST): Diagnosed in 2007 while incarcerated. Lost to follow-up multiple times i/s/o DIONISIO or relationship issues. S/p 12 weeks of Epclusa Spring 2022. EGD done 02/2024 for variceal screening. We have discussed relapse and reinfection prevention. Recommend q6mo US for HCC screening -- managed by [facility] Assessment & Plan (06/02/2024 4:42 PM EST): Diagnosed in 2007 while incarcerated. Lost to follow-up multiple times i/s/o DIONISIO or relationship issues. S/p 12 weeks of Epclusa Spring 2022. EGD done 02/2024 for variceal screening. We have discussed relapse and reinfection prevention. Recommend q6mo US for HCC screening -- due next month. Assessment & Plan (03/30/2024 7:14 PM EST): Diagnosed in 2007 while incarcerated. Lost to follow-up multiple times i/s/o DIONISIO or relationship issues. S/p 12 weeks of Epclusa Spring 2022. EGD done 02/2024 for variceal screening. We have discussed relapse and reinfection prevention. Recent FibroScan showed liver stiffness >3x upper limit of normal, c/w cirrhosis. Appears reasonably compensated at present. She will f/up with GI. Labs collected in anticipation of that visit. Assessment & Plan (10/14/2023 3:38 PM EDT): Diagnosed in 2007 while incarcerated. Lost to follow-up multiple times i/s/o DIONISIO or relationship issues. S/p 12 weeks of Epclusa Spring 2022; SVR labs due in January-- will try to obtain 12/27/22 Discussed relapse and reinfection prevention. Recommend EGD for variceal screening and q6mo US for HCC screening. Assessment & Plan (08/13/2023 5:04 PM EDT): Diagnosed in 2007 while incarcerated. Lost to follow-up multiple times i/s/o DIONISIO or relationship issues. S/p 12 weeks of Epclusa Spring 2022. Assessment & Plan (05/29/2023 9:43 PM EST): Diagnosed in 2007 while incarcerated. Lost to follow-up multiple times i/s/o DIONISIO or relationship issues. S/p 12 weeks of Epclusa Spring 2022; SVR labs due in January-- will try to obtain 12/27/22 Discussed relapse and reinfection prevention. Recommend EGD for variceal screening and q6mo US for HCC screening. Assessment & Plan (12/27/2022 7:35 PM EDT): Diagnosed in 2007 while incarcerated. Lost to follow-up multiple times i/s/o DIONISIO or relationship issues. S/p 12 weeks of Epclusa Spring 2022; SVR labs due in January-- will try to obtain HCV quant today; CBC and CMP done recently Recommend EGD for variceal screening and q6mo US for HCC screening; not urgent given other issues right now Assessment & Plan (10/22/2022 1:46 PM EDT): Diagnosed in 2007 while incarcerated. Lost to follow-up multiple times i/s/o DIONISIO or relationship issues. Started Epclusa in July, about to comple 12 week course. Most recent HCV viral loads undetectable. Discussed importance of finishing course and f/up for SVR labs in 3 mo. Discussed relapse and reinfection prevention. Recommend EGD for variceal screening and q6mo US for HCC screening. Assessment & Plan (09/26/2022 6:08 PM EDT): Diagnosed in 2007 while incarcerated. Lost to follow-up multiple times i/s/o DIONISIO or relationship issues. Now about to complete 8th week of Epclusa. Most recent labs with HCV undetectable. No major s/e. Discussed need to complete full 12 weeks. Gave remainder of Rx from med room today. F/up for next labs in 2-4 weeks; will also need 3 months after finishing for SVR. Assessment & Plan (08/15/2022 11:46 AM EDT): Diagnosed in 2007 while incarcerated. Has been lost to follow-up multiple times i/s/o DIONISIO or relationship issues. Finally able to start Epclusa this past month, planning 12 weeks of treatment. Gave her the remainder of the Rx during today's visit and discussed monthly f/up for labs. Hepatitis C Assessment: Risk factors: OUD, incarceration Labs: HCV genotype: 1A HCV viral load: 02/06/18: 1,539,651 (6.19 log IU/mL) HBV surface Ag: nonreactive as of 11/05/21 HBV surface Ab: pos/immune as of 11/05/21 HAV: pos/immune as of 11/05/21 AFP: 6.4 CBC: Lab Results Component Value Date WBC 4.3 05/31/2022 NEUTROPHILS 2.3 05/31/2022 LYMPHOCYTES 1.5 05/31/2022 RBC 4.40 05/31/2022 HGB 12.9 05/31/2022 HCT 40.5 05/31/2022 MCV 92 05/31/2022 MCH 29.3 05/31/2022 MCHC 31.9 (L) 05/31/2022 RDW 15.7 (H) 05/31/2022 PLATELETS 57 (L) 05/31/2022 MONOCYTES 0.3 05/31/2022 EOSINOPHILS 0.2 05/31/2022 BASOPHILS 0.0 05/31/2022 CMP: Lab Results Component Value Date NA 139 05/31/2022 K 4.5 05/31/2022 CHLORIDE 108 05/31/2022 CALCIUM 10.9 (H) 05/31/2022 BUN 14 05/31/2022 EGFR 77 05/31/2022 CREATININE 0.98 05/31/2022 PROTEIN 8.6 05/31/2022 ALBUMIN 3.6 05/31/2022 AST 38 05/31/2022 ALT 33 05/31/2022 ALKPHOS 143 (H) 05/31/2022 BILIRUBIN 0.6 05/31/2022 GLUCOSE 113 (H) 05/31/2022 AST/ALT 120/103 09/2018, 212/156 03/2019 Alk Phos 182 09/2018, 171 03/2019 Immunoglobulins: IgG 2036 (700-1600), IgA 189 (70-400), IgM 334 (46-304) PT/INR/PTT: Lab Results Component Value Date INR 1.33 (H) 05/31/2022 PT 15.6 (H) 05/31/2022 [place] screen: 1:80 speckled; consider testing FOOTE, DIRECTOR LABOR STANDARDS, SSA, SSB, AND SCL-70 Iron/TIBC: Fe 158 (51-146); TIBC 322 (240-450) Ferritin: 120 (10-109) Fibrosure 03/17/[address] [facility] -- F1 fibrosis, HCV quant 1,810,000 Fibroscan 09/01/16: Score 9.6 kPa, consistent with stage 2-3. IQR: 1.2 kPa. IQR/med(%): 13%. Number of attempts: 12 FibroTest-Actitest Panel 12/2017: F3 advanced fibrosis; A1 minimal necroinflammatory activity FibroTest-Actitest Panel 03/02/22: Fibrosis stage F3 (advanced fibrosis); necroinflammatory grade F3 (advanced fibrosis) Vaccines: Hep A: 10/28/08, 03/20/18, 04/02/19 --> immune 02/15/22 Hep B: immune 02/15/22 Pneumo 23: 01/29/2009 Tdap: 03/20/18 Imagin06/30/22 @ [facility]: 1. Cirrhosis, no focal suspicious lesion. 2. Interval increase in spleen size measuring 22.5 cm. 11/26/18 @ [facility]: Liver has a coarsened echotexture with increased echogenicity compatible with chronic liver disease. No focal solid mass or dilated intrahepatic ducts. 09/01/16 @ [facility]: Hepatic parenchyma appears within normal limits. The contour of the liver is smooth. There is no focal liver mass. The main portal vein is patent with hepatopetal flow. There is no ascites. [REPORT SCANNED] 05/17/[address] [facility]: No concerning focal hepatic lesion. Preserved direction of flow towards the liver within the main hepatic vein. Borderline splenomegaly with the spleen measuring 14.1 cm craniocaudal dimension. Assessment & Plan (06/04/2022 4:52 PM EST): Diagnosed in 2007 while incarcerated. Has been lost to follow-up multiple times i/s/o DIONISIO or relationship issues. Have been trying to get updated liver US which is the one outstanding result before we can start treatment. Discussed with her that with her severity of disease GI remains the optimal venue for treatment; will try again to refer there, but if not able to connect will still consider treating in PCP office if the alternative is further delay. Hepatitis C Assessment: Risk factors: OUD, incarceration Labs: HCV genotype: 1A HCV viral load: 02/06/18: 1,539,651 (6.19 log IU/mL) HBV surface Ag: nonreactive as of 11/05/21 HBV surface Ab: pos/immune as of 11/05/21 HAV: pos/immune as of 11/05/21 Lab Results Component Value Date WBC 4.3 05/31/2022 NEUTROPHILS 2.3 05/31/2022 LYMPHOCYTES 1.5 05/31/2022 RBC 4.40 05/31/2022 HGB 12.9 05/31/2022 HCT 40.5 05/31/2022 MCV 92 05/31/2022 MCH 29.3 05/31/2022 MCHC 31.9 (L) 05/31/2022 RDW 15.7 (H) 05/31/2022 PLATELETS 57 (L) 05/31/2022 MONOCYTES 0.3 05/31/2022 EOSINOPHILS 0.2 05/31/2022 BASOPHILS 0.0 05/31/2022 Lab Results Component Value Date NA 139 05/31/2022 K 4.5 05/31/2022 CHLORIDE 108 05/31/2022 C02 25.0 05/31/2022 CALCIUM 10.9 (H) 05/31/2022 BUN 14 05/31/2022 EGFR 77 05/31/2022 CREATININE 0.98 05/31/2022 PROTEIN 8.6 05/31/2022 ALBUMIN 3.6 05/31/2022 AST 38 05/31/2022 ALT 33 05/31/2022 ALKPHOS 143 (H) 05/31/2022 BILIRUBIN 0.6 05/31/2022 GLUCOSE 113 (H) 05/31/2022 Lab Results Component Value Date PTT 36 05/31/2022 Lab Results Component Value Date INR 1.33 (H) 05/31/2022 PT 15.6 (H) 05/31/2022 Vaccines: Hep A: 10/28/08, 03/20/18, 04/02/19 --> immune 02/15/22 Hep B: immune 02/15/22 Pneumo 23: 01/29/2009 Tdap: 03/20/18 Assessment & Plan (03/07/2022 7:25 PM EDT): Diagnosed in 2007 while incarcerated. Has been lost to follow-up multiple times i/s/o DIONISIO or relationship issues. Risk factors: OUD, incarceration Labs: HCV genotype: 1A HCV viral load 02/06/18: 1,539,651 (6.19 log IU/mL) HBV surface Ag: nonreactive as of 11/05/21 HBV surface Ab: pos/immune as of 11/05/21 HAV: pos/immune as of 11/05/21 Estimated Creatinine Clearance: 110.4 mL/min (by C-G formula based on SCr of 0.91 mg/dL). per labs 02/15/22. POC INT today (03/02/22) = 1.3 Fibrosure 03/17/[address] [facility] -- F1 fibrosis, HCV quant 1,810,000 Fibroscan 09/01/16: Score 9.6 kPa, consistent with stage 2-3. IQR: 1.2 kPa. IQR/med(%): 13%. Number of attempts: 12 FibroTest-Actitest Panel 12/2017: F3 advanced fibrosis; A1 minimal necroinflammatory activity Vaccines: Hep A: 10/28/08, 03/20/18, 04/02/19 --> immune 02/15/22 Hep B: immune 02/15/22 Pneumo 23: 01/29/2009 Tdap: 03/20/18 Imagin11/26/18 @ [facility]: Liver has a coarsened echotexture with increased echogenicity compatible with chronic liver disease. No focal solid mass or dilated intrahepatic ducts. 09/01/16 @ [facility]: Hepatic parenchyma appears within normal limits. The contour of the liver is smooth. There is no focal liver mass. The main portal vein is patent with hepatopetal flow. There is no ascites. [REPORT SCANNED] 05/17/[address] [facility]: No concerning focal hepatic lesion. Preserved direction of flow towards the liver within the main hepatic vein. Borderline splenomegaly with the spleen measuring 14.1 cm craniocaudal dimension. Based on labs done @ [facility] 02/15/22: Uital-Vhbegaiv-Rony (CTP) score 6 -- Class A. Least severe liver disease. FIB4 score 6.99 (FIB-4 >3.25 would have a 97% specificity and a positive predictive value of 65% for advanced fibrosis) -- score may be falsely elevated by elevated hepatic enzymes i/s/o acute illness. Will get FibroTest today to eval current state of cirrhosis/fibrosis. Discussed that labs have been done within appropriate timeframe (CBC, INR, Hepatic functions, GFR all <3mo prior) and we have h/o HIV/HepB tests and HCV genotype and viral load on record. Reviewed contraindication to treatment in prengancy. Only thing missing is liver US (most recent >6mo ago) to r/o HCC -- will order, patient prefers for this to be done at [facility] if possible due to proximity to where she is living. Once this is complete, will be able to initiate treatment. Discussed process of being contacted by Clinical Pharmacist and picking up meds from this clinic, as well as need for monthly montioring labs while on treatment (typically 8-12 weeks). Patient expressed understanding and agreement with this plan. Assessment & Plan (01/01/2022 2:34 PM EDT): Diagnosed in 2007 while incarcerated. Has been lost to follow-up multiple times i/s/o DIONISIO or relationship issues. Most recent hepatic panel 11/2021 @ [facility]: Component & normal range 11/14/21 ALBUMIN 3.5 - 5.2 g/dL 3.3 Low TOTAL BILIRUBIN 0.0 - 1.0 mg/dL 0.5 DIRECT BILIRUBIN 0.0 - 0.3 mg/dL 0.2 ALKALINE PHOSPHATASE 40 - 130 U/L 146 High AST 10 - 50 U/L 109 High ALT 10 - 50 U/L 86 High TOTAL PROTEIN 6.0 - 8.0 g/dL 7.9 GLOBULIN 2.2 - 4.2 g/dL 4.6 High Based on the worsening thrombocytopenia I am concerned about worsening liver dysfunction and cirrhosis. Needs updated Fibrotest and imaging to determine if we are able to treat HCV safely in our clinic vs need for GI specialist. Assessment & Plan (03/02/2021 9:40 PM EDT): Diagnosed in 2007 while incarcerated. Last US done 05/2020 showed mildly coarsened echotexture with increased echogenicity suggestive of chronic liver disease. No focal liver lesions. and Spleen measures 19.2 cm, and measured up to [address] from January 03, 2019 Fibrotest last done 01/2020 showed F4 severe fibrosis with A1-21 minimal necroinflammatory activity. Has been lost to follow-up multiple times due to substance use or relationship issues. Level of liver damage makes treatment a high priority. Discussed that some testing is required to be within 6 months of treatment initiation, so recommend getting blood tests today and referring for HCC screening ultrasound. As soon as ultrasound completed we can get PA started for medication (likely Harvoni). Will coordinate with [facility] Clinical Pharmacist. Assessment & Plan (08/16/2020 5:16 PM EDT): Diagnosed in 2007 while incarcerated. Has been lost to follow-up multiple times due to substance use or relationship issues. Last PT/INR and hepatic panel just over 6mo ago so will recheck today--should have everything else in place for to start treatment. Assessment & Plan (02/11/2020 8:34 PM EDT): Diagnosed in 2007 while incarcerated. Has been lost to follow-up multiple times due to substance use or relationship issues. Risk factors: OUD, incarceration Labs: HCV genotype: 1A Hep B immune Hep A immune Fibrosure 03/17/[address] [facility] -- F1 fibrosis, HCV quant 1,810,000 Fibroscan 09/01/16: Score 9.6 kPa, consistent with stage 2-3. IQR: 1.2 kPa. IQR/med(%): 13%. Number of attempts: 12 FibroTest-Actitest Panel 12/2017: F3 advanced fibrosis; A1 minimal necroinflammatory activity Vaccines: Hep A: 10/28/08, 03/20/18, 04/02/19 Hep B: immune Pneumo 23: 01/29/2009 Tdap: 03/20/18 11/26/18 @ [facility]: Liver has a coarsened echotexture with increased echogenicity compatible with chronic liver disease. No focal solid mass or dilated intrahepatic ducts. 09/01/16 @ [facility]: Hepatic parenchyma appears within normal limits. The contour of the liver is smooth. There is no focal liver mass. The main portal vein is patent with hepatopetal flow. There is no ascites. [REPORT SCANNED] 05/17/[address] [facility]: No concerning focal hepatic lesion. Preserved direction of flow towards the liver within the main hepatic vein. Borderline splenomegaly with the spleen measuring 14.1 cm craniocaudal dimension. Plan: -Needs new labs including fibrotest, and up to date ultrasound -Continue engaging in OUD groups/psychiatric care Assessment & Plan (01/23/2020 7:48 PM EDT): Diagnosed in 2007 while incarcerated. Has been lost to follow-up multiple times due to substance use or relationship issues. Needs to come in for labs. Assessment & Plan (09/21/2019 12:45 PM EDT): Diagnosed in 2007 while incarcerated. Has been lost to follow-up multiple times due to substance use or relationship issues. Would need repeat labs in order to pursue Hep C medical treatment. US last done 11/2018. Patient prefers to defer until after local coronavirus outbreak is over. Assessment & Plan (07/30/2019 11:14 AM EDT): Diagnosed in 2007 while incarcerated. Has been lost to follow-up multiple times due to substance use or relationship issues. Discussed that US and labs need to be within 6 months of treatment, and currently routine imaging is on hold due to coronavirus. Rec calling back in 1-2 months for f/up. Assessment & Plan (04/19/2019 5:10 PM EST): Images from the original note were not included. Diagnosed in 2007 while incarcerated. Has been lost to follow-up multiple times due to substance use or relationship issues. 2015: seen @ [facility] 08/2016 f/up planned with [facility] [place] 09/2016: planning for Harvoni in a few months 06/2017: has not followed-up. PCP may treat soon 01/2018: to start seeing PCP for treatment 03/2018: planning to start Harvoni, never did 03/2019: re-engaged in care, wants to see PCP re: treatment Hepatitis C Assessment: Risk factors: OUD, incarceration Labs: HCV genotype: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 Comments Blood Pressure 90/55 06/26/2024 11:03 AM EST Pulse 83 06/26/2024 11:03 AM EST Temperature 37.2 C (98.9 F) 02/11/2020 1:17 PM EDT Respiratory Rate 19 02/06/2018 12:32 PM EDT Oxygen Saturation 97% 06/26/2024 11:03 AM EST Inhaled Oxygen Concentration - - Weight 72.6 kg (160 lb) 06/26/2024 11:03 AM EST Height 168 cm (5' 6.14 ) 06/26/2024 11:03 AM EST Body Mass Index 25.71 06/26/2024 11:03 AM EST Plan of Treatment Upcoming Encounters Date Type Department Care Team (Late st Contact Info) Description 12/22/2024 2:00 PM EDT Office Visit [facility] [address] [place] [phone] 02/25/2025 3:00 PM EDT Office Visit [facility] [address] [place] [phone] Myrna Haddad MD [address] [place] [id number] Health Maintenance Due Date Last Done Comments HPV Screening 1985 Pap + HPV 1985 Cervical Cancer Screening 2006 Pap Smear 2006 Hepatocellular Carcinoma Screening (HCC) 07/11/2024 01/10/2024, 02/05/2023, 06/30/2022, Additional history exists Depression Monitoring 08/26/2024 05/28/2024 , 03/19/2024, 12/27/2022, Additional history exists Imm-Influenza (#1) 2025 03/03/2024, 02/12/2024, 03/02/2022, Additional history exists Medicare Annual Wellness Visit 01/12/2025 Postponed from 09/30/2003 (Not appropriate at this time) LTBI Screening (#1) 03/19/2025 03/19/2024 Tobacco Screening 03/19/2025 03/19/2024, 02/24/2020, 09/21/2019 Anxiety Screening 05/28/2025 05/28/2024 Diabetes Screening 05/28/2025 05/28/2024, 03/19/2024, 10/31/2023, Additional history exists Relationship Safety Screening/Counseling 05/28/2025 05/28/2024, 03/19/2024, 07/04/2023, Additional history exists Hypertension Screening (#1) 06/26/2025 EGD (Upper Endoscopy) 10/30/2026 10/31/2023 Imm-DTaP/Tdap/Td (7 - Td or Tdap) 03/20/2028 03/20/2018, 09/30/1998, 09/30/1990, Additional history exists Imm-Hepatitis A Completed 04/02/2019, 03/20/2018, 10/28/2008 [id number] Completed 03/03/2024, 03/02/2022, 08/17/2020, Additional history exists Alcohol and Drug Screen Completed 05/28/19, 03/19/2024, 10/10/2023, Additional history exists HIV Screening Completed 05/28/2024, 03/19/2024, 10/29/2023, Additional history exists Imm-Pneumococcal Completed 06/26/2024, 08/18/2011 Cervical Ablation/Cold-Knife Conization Discontinued Cervical Cryotherapy Discontinued Colposcopy Discontinued Endometrial Biopsy Discontinued Excision/Leep Discontinued HPV Genotyping Discontinued Imm-Hepatitis B Discontinued Vaginal Pap Discontinued Vulvoscopy Discontinued Procedures Procedure Name Priority Date/Time Associated Diagnosis Comments IAAD IA HIV-1 AG W/HIV-1 & HIV-2 ANTBDY SINGLE Routine 05/28/2024 2:50 PM EST Weight loss, unintentional COMPREHENSIVE METABOLIC PANEL Routine 05/28/2024 2:50 PM EST Weight loss, unintentional Treated hepatitis C, with cirrhosis (HCC-CMS) QUANTIFERON-TB PLUS Routine 03/19/2024 2 :16 PM EST Weight loss, unintentional from Last 3 Months or Most Recently Relevant to Health Maintenance Results * IAAD IA HIV-1 AG W/HIV-1 & HIV-2 ANTBDY SINGLE (05/28/2024 2:50 PM EST) Pathologist [facility] HIV AG/AB COMBINED QUALITATIVE NON-REACTI VE NON-REACT LUDMILA [facility] Blood Blood / Unknown 05/28/2024 2 :50 PM EST 05/28/2024 3:05 PM EST us Myrna Haddad MD LAB - BLOOD DRAW Final Result [facility] [address] [facility] [place] [address], * (ABNORMAL) COMPRE METAB PANEL ([facility] CMET) (05/28/2024 2:50 PM EST) Pathologist [facility] ALBUMIN 4.0 3.5 - 5.0 G/DL [facility] BILIRUBIN, TOTAL 0.6 0.3 - 1.2 MG/DL [facility] CALCIUM 10.7(H) 8 - 10.5 MG/DL [facility] CO2 26.0 19 - 28 MMOL/L [facility] Comment: Elevated triglyceride levels (>1000 mg/dL) may cause falsely low bicarbonate results. If clinically indicated, a venous blood gas should be ordered to confirm the bicarbonate result. CHLORIDE 107 98 - 110 MMOL/L [facility] GLUCOSE 68(L) 70 - 100 MG/DL [facility] ALKALINE PHOSPHATASE, TOTAL 101(H) 25 - 100 U/L [facility] Comment: The results of this assay should be interpreted in the context of the patient's [id number]- and additional relevant clinical and laboratory data. POTASSIUM 4.7 3.1 - 5.3 MMOL/L [facility] Comment: For serum, the lower end of the reference range may be higher by 0.2 to 0.4 mmol/L. PROTEIN, TOTAL 8.7(H) 6.8 - 8.6 G/DL [facility] SODIUM 139 135 - 145 MMOL/L [facility] ALT(SGPT) 13 9.0 - 67.0 U/L [facility] AST(SGOT) 28 13 - 39 U/L [facility] UREA NITROGEN (BUN) 10 7 - 25 MG/DL [facility] CREATININE 0.83 0.5 - 1.1 MG/DL [facility] Comment: The results of this assay should be interpreted in the context of the patient's [id number]- and additional relevant clinical and laboratory data. ESTIMATED GFR >90 >59 mL/min/1.7 3_m2 [facility] Comment: The calculation of eGFR utilizes the 2020 CKD-EPI creatinine equation. eGFR estimates can be inaccurate and may vary from the true level of kidney function. Specific populations in which an eGFR value may be inaccurate or biased include: acute kidney injury, , extremes of muscle mass, age greater than 80 years old. The results of this assay should be interpreted in the context of the patient's [id number]- and additional relevant clinical and laboratory data. ANION GAP WITHOUT POTASSIUM 6(L) 7 - 16 [facility] Blood Blood / Unknown 05/28/2024 2 :50 PM EST 05/28/2024 3:05 PM EST us Myrna Haddad MD LAB - BLOOD DRAW Final Result [facility] [address] [place] [address], * QUANTIFERON-TB PLUS (aka [id number]) (03/19/2024 2:16 PM EST) NIL 0.175 IU/mL [facility] TB 1 AG-NIL 0.00 IU/mL [facility] TB 2 AG-NIL 0.00 IU/mL [facility] MITOGEN-NIL 9.825 IU/mL [facility] Comment:CORRECTED ON 03/21 A T 2326: PREVIOUSLY REPORTED 10.0 QFT PLUS RESULT Negative, Mycobacterium tuberculosis infection NOT likely. Negative, Mycobacterium tuberculosis infection NOT likely. TEXT [facility] Comment: In order for a test result to be valid the (Mitogen tube minus Nil tube) value must be >/= 0.5 IU/mL and/or the Nil tube must have a value of </= 8 IU/mL. For a test to be considered positive at least one (TB antigen tube minus Nil tube) value must be >/=0.35 IU/mL AND this same tube value must be >/= 25% of the Nil tube value, AND the Nil tube must have a value of </= 8 IU/mL. A test is considered negative when criteria for a valid result are met but both (TB antigen tube minus Nil tube) values fail to meet the criteria for a positive result. An indeterminate test result reflects cases when one or more test component values fail to meet criteria for a valid positive or valid negative result. The performance of QFT-Plus (U.S. format) has not been extensively evaluated with specimens from individuals younger than 18 years old, women, or those with various diseases, conditions, or treatments resulting in impaired or altered immune functions. QFT-Plus is an indirect test for M. tuberculosis infection (including disease) and is intended for use in conjunction with risk assessment, radiography, and other medical and diagnostic evaluations. Refer to the most recent CDC guidance for detailed recommendations about diagnosing M. tuberculosis infection (including disease) and selecting persons for testing. This assay was validated for clinical use at [facility]. The assay is approved by the U.S. Food and Drug Administration. The [facility] laboratory is certified under the Clinical Laboratory Improvement Amendments of 1988 (CLIA 88) as qualified to perform high complexity laboratory testing. 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
--- NOTE | 2024-12-19 19:59 | ECG_ITS ---
Test Reason : si Blood Pressure : */* mmHG Vent. Rate : 74 BPM Atrial Rate : 74 BPM P-R Int : 172 ms QRS Dur : 100 ms QT Int : 424 ms P-R-T Axes : 54 75 62 degrees QTcB Int : 470 ms Normal sinus rhythm Normal ECG No previous ECGs available Referred By: Kai Luna Electronically Signed By: DEN DOWLING
--- NOTE | 2024-12-19 20:01 | ED.OVERDOSE ---
HPI - Overdose General Chief Complaint: Overdose Stated Complaint: heroin , coke usage Time Seen by Provider: 12/19/24 18:24 Source: patient Mode of arrival: EMS Limitations: no limitations History of Present Illness ED Provider: Kai MALLOY HPI Narrative: The patient is a 39-year-old female presenting to the ED via EMS reports they were activated by a bystander after the patient was seen slumped over on a park bench. EMS reports patient was easily arousable and there was no indication for Narcan. In the ED patient reports injecting heroin/fentanyl, and cocaine. The patient reports she is feeling hopeless and suicidal without formulated plan. The patient reports she has had for overdoses in the past week. The patient also reports since 12/13 she has been suffering from a sunburn over her entire body, with sporadic areas of second-degree burn. The patient denies associated fever/chills, nausea, vomiting, chest pain, shortness of breath, abdominal pain or other acute somatic complaint. Related Data Home Medications ?Medication ?Instructions ?Recorded ?Confirmed bisacodyl 5 mg tablet,delayed 5 mg PO DAILY PRN Constipation 12/20/24 12/20/24 release cholecalciferol (vitamin D3) 25 25 mcg PO DAILY 12/20/24 12/20/24 mcg (1,000 unit) tablet (Vitamin D3) clonazepam 1 mg tablet 1 mg PO BID 12/20/24 12/20/24 clonidine HCl 0.1 mg tablet 0.1 mg PO TID 12/20/24 12/20/24 doxepin 100 mg capsule 100 mg PO BEDTIME 12/20/24 12/20/24 gabapentin 800 mg tablet 800 mg PO TID 12/20/24 12/20/24 hydroxyzine HCl 25 mg tablet 25 mg PO TID 12/20/24 12/20/24 methadone 10 mg tablet 110 mg PO DAILY 12/20/24 12/20/24 promethazine 12.5 mg tablet 12.5 mg PO Q8H PRN nausea 12/20/24 12/20/24 propranolol 10 mg tablet 10 mg PO TID 12/20/24 12/20/24 sertraline 50 mg tablet 50 mg PO BID 12/20/24 12/20/24 Allergies Allergy/AdvReac Type Severity Reaction Status Date / Time No Known Allergies Allergy Verified 12/20/24 06:50 Review of Systems Review of Systems: Yes all other systems are reviewed and are negative PMFSH Past Medical History Medical History Anxiety Depression PTSD (post-traumatic stress disorder) Social History Social History Unable to assess alcohol history related to: Unknown Physical Exam Vital Signs: Vital Signs: Last Vital Signs Temp 97.8 F 12/22/24 17: Pulse 63 12/22/24 17:28 Resp 15 12/22/24 17:28 BP 110/70 12/22/24 17:28 Pulse Ox 99 12/22/24 17: O2 Del Method Room Air 12/22/24 17: BMI result Body Mass Index 30.0 CONSTITUTIONAL: The patient appears non-toxic, well nourished and in no acute distress. Vital signs as documented. HEAD: Atraumatic, normocephalic. EYES: EOMs grossly intact, pupils equal, conjunctiva clear, no exudate. ENT: Nares patent, no discharge. Airway patent, no audible stridor, visible mucosa is pink and moist without noted lesions. NECK: Trachea is midline, no obvious masses or gross abnormalities. CHEST: Symmetric movement, normal appearance. LUNGS: LS present and CTAB, no w/r/r. Non-labored work of breathing. CARDIAC: Regular Rhythm, S1/S2 appreciated, no murmurs, rubs or gallops. ABDOMEN: Abdomen soft and non-tender x4 quadrants, no palpable masses or organomegaly. : Deferred. EXTREMITIES: Normal tone, moves all extremities spontaneously without reported pain. No obvious acute injury or deformity noted. NEURO: Alert and oriented x3, CN II-XII appear grossly intact. Cerebellar Functioning grossly intact. No obvious sensory or motor deficits. Speech clear and appropriate. PSYCH: normal affect, appropriate eye contact, fluid speech, with appropriate response to questioning. No reported suicidality or homicidality. SKIN: Warm, dry, color appropriate, normal turgor. There is a diffuse peeling rash consistent with sunburn, there is an isolated blister noted to the anteromedial aspect of the mid left savage, blister intact, no overlying erythema concerning for superimposed infection, no other rashes noted. Course Reevaluation(s) Reevaluation #1: 12/20/24 Provider: Mitul Pack MD 06:18 Patient in physician observation for psychiatric evaluation.? No acute events reported overnight. No current complaints. VS stable.? Patient is pending CARE team evaluation. Patient's urinalysis revealed trace ketones, microscopic was negative for urinary tract infection. Urine test was negative. Will continue to monitor. 10:59 Patient was seen by the care team. Care team felt that the patient would benefit from a dual diagnosis program. Patient will be kept in the emergency department Behavioral Health Unit until disposition can be determined. We will continue to monitor Reevaluation #2: Time: 09:05 Date: 12/21/24 Provider: Avery Apodaca MD Patient in physician observation for psychiatric evaluation.? No acute events reported overnight. No current complaints. VS stable.? Patient is in bed search status/pending CARE team evaluation. Will continue to monitor. Reevaluation #3: Time: 07:51 Date: 12/22/24 Provider: Avery Apodaca MD Patient in physician observation for psychiatric evaluation.? No acute events reported overnight. No current complaints. VS stable.? Patient is in bed search status/pending CARE team evaluation. Will continue to monitor. Additional Reevaluation(s): Time: 17:28 Date: 12/22/24 Provider: Mitul Pack MD Physician observation ended at 17:28 hours. Patient accepted at [facility] for inpatient psychiatry care. Patient transferred via ambulance. Medications Administered Discontinued Medications Generic Name Dose Route Start Last Admin Trade Name Freq PRN Reason Stop Dose Admin Clonazepam 1 mg 12/20/24 09:30 12/22/24 09:28 Clonazepam 1 Mg Tablet PO 1 mg BID MELISSA Administration Clonidine HCl 0.1 mg 12/20/24 09:30 12/22/24 16:42 Clonidine Hcl 0.1 Mg Tablet PO 0.1 mg TID MELISSA Administration Protocol Doxepin HCl 100 mg 12/20/24 21:00 12/21/24 21:02 Doxepin Hcl 25 Mg Capsule PO 100 mg BEDTIME MELISSA Administration Gabapentin 800 mg 12/20/24 09:30 12/22/24 16:43 Gabapentin 400 Mg Capsule PO 800 mg TID MELISSA Administration Hydroxyzine HCl 25 mg 12/20/24 09:30 12/22/24 16:43 Hydroxyzine Hcl 25 Mg Tablet PO 25 mg TID MELISSA Administration Ibuprofen 600 mg 12/19/24 20:00 12/20/24 00:53 Ibuprofen 600 Mg Tablet PO 12/19/24 20:01 Not Given ONCE ONE Methadone HCl 110 mg 12/20/24 06:27 12/20/24 06:49 Methadone Hcl 20 Mg/2 Ml Oral.Conc PO 12/20/24 06:28 110 mg ONCE ONE Administration Methadone HCl 110 mg 12/21/24 09:00 12/22/24 09:09 Methadone Hcl 20 Mg/2 Ml Oral.Conc PO 110 mg DAILY MELISSA Administration Promethazine HCl 12.5 mg 12/20/24 09:16 12/20/24 09:58 Promethazine Hcl 25 Mg Tablet PO 12.5 mg Q8H PRN Administration Nausea Propranolol HCl 10 mg 12/20/24 09:30 12/22/24 16:20 Propranolol Hcl 10 Mg Tablet PO Not Given TID MELISSA Protocol Sertraline HCl 50 mg 12/20/24 09:30 12/22/24 09:28 Sertraline Hcl 50 Mg Tablet PO 50 mg BID MELISSA Administration Vitamin D 25 mcg 12/21/24 09:00 12/22/24 09:28 Cholecalciferol (Vitamin D3) 25 Mcg Tablet PO 25 mcg DAILY MELISSA Administration Medical Decision Making Medical Decision Making MDM Narrative: 8:04 PM 12/19/2024 (Allan MALLOY): The patient is a 39-year-old female presenting to the ED for evaluation of polysubstance abuse including heroin and cocaine. The patient in the ED reports active suicidal ideation without a formulated plan, reports feeling hopeless and depressed as she has overdose 4 times in the past week. The patient also reports suffering a sunburn last week which is still healing. The patient did not require Narcan in the field, continues to protect her own airway and is alert to verbal stimuli. The patient will be evaluated medically and once medically cleared will undergo crisis evaluation. 11:59 PM 12/19/2024 (Allan MALLOY): The patient's laboratory evaluation reveals mild leukopenia, and moderate anemia, but outside the transfusion threshold. CMP shows no evidence of electrolyte abnormality or LENORA. LFTs are unremarkable. The patient's urinalysis shows no evidence of infection, is negative, the patient's salicylates, Tylenol, and ethanol are negative however you tox is positive for methadone, fentanyl, benzos, and cocaine. Patient remains hemodynamically stable. At this time the patient is medically cleared for crisis evaluation. Admission/Observation Consideration of admission/observation: Escalation of care including admission/observation considered Lab Data MDM Lab Attestation statement: I reviewed the patient's lab results. 12/22/24 11:02 12/22/24 11:02 Labs: Lab Results 12/19/24 12/19/24 12/19/24 Range/Units 23:16 23:17 23:18 WBC 1.7 L (4.8-10.8) X10*3/uL RBC 3.41 L (4.20-5.50) X10*6/uL Hgb 9.5 L (12.0-16.0) g/dl Hct 28.9 L (37.0-47.0) % MCV 84.8 (80.0-98.0) fL MCH 27.9 (27.0-33.0) pg MCHC 32.9 (31.0-35.0) g/dl RDW 16.0 (11.0-16.0) % Plt Count 46 L (160-400) X10*3/uL MPV 11.1 (9.4-12.3) fL Immature Gran % (Auto) 0.0 (0.0-0.4) % Neut % (Auto) 45.4 (45-73) % Lymph % (Auto) 38.8 (20-40) % Vigo % (Auto) 9.1 (2-11) % Eos % (Auto) 6.1 H (0-4) % Baso % (Auto) 0.6 (0-2) % Lymph # (Auto) 0.6 L (1.2-4.9) X10*3/uL Vigo # (Auto) 0.2 (0.1-1.2) X10*3/uL Eos # (Auto) 0.1 (0.0-0.4) X10*3/uL Baso # (Auto) 0.0 (0.0-0.2) X10*3/uL Abs Immat Gran (auto) 0.00 (0.00-0.03) X10*3/uL Absolute Neuts (auto) 0.8 L (2.0-8.3) x10*3/uL Absolute Nucleated RBC 0.000 (0.0-0.012) X10*3/uL Nucleated RBC % (auto) 0.0 (0.0-0.2) /100WBC Smear Tech's Comments VERIFIED Smear Path Review SEE NOTE Sodium 141 (135-145) mmol/L Potassium 4.1 (3.3-5.1) mmol/L Chloride 109 H (96-108) mmol/L Carbon Dioxide 26 (22-29) mmol/L Anion Gap 10 L (12-20) BUN 14 (9-16) mg/dL Creatinine 0.80 (0.5-1.4) mg/dL Estim Creat Clear Calc 99.6 Estimated GFR > 60 Random Glucose 71 (60-115) mg/dL Calcium 9.5 (8.4-10.2) mg/dL Total Bilirubin 0.6 (0.0-1.0) mg/dL AST 34 H (5-31) U/L ALT 24 (0-31) U/L Alkaline Phosphatase 102 (39-117) U/L Total Protein 7.2 (6.5-8.0) g/dL Albumin 3.8 (3.5-5.0) g/dL Urine Color Dark Yellow Urine Appearance Clear Urine pH 6.5 (5.0-9.0) Ur Specific [place] 1.020 (1.005-1.025) Urine Protein Negative (Neg-Trace) mg/dL Urine Glucose (UA) Negative (Negative) mg/dL Urine Ketones Negative (Negative) mg/dL Urine Blood Negative (Negative) Urine Nitrite Negative (Negative) Ur Leukocyte Esterase Trace H (Negative) Urine RBC 0-2 (0-2) /HPF Urine WBC 0-5 (0-5) /HPF Ur Squamous Epith Cells 0-2 (0-2) /HPF Urine Bacteria None Seen (None Seen) Hyaline Casts 0-2 (0-2) /LPF Urine Test NEGATIVE (NEGATIVE) Salicylates (15-30) mg/dL Urine Opiates Screen POSITIVE H (Not Detect) Ur Buprenorphine Scrn Not Detected (Not Detect) ng/mL Ur Oxycodone Screen Not Detected (Not Detect) ng/mL Urine Methadone Screen Positive H (Not Detect) ng/mL Urine Fentanyl Screen POSITIVE H (Not Detect) Acetaminophen (<30) mcg/mL Ur Barbiturates Screen Not Detected (Not Detect) Ur Phencyclidine Scrn Not Detected (Not Detect) Ur Amphetamines Screen Not Detected (Not Detect) U Benzodiazepines Scrn POSITIVE H (Not Detect) Urine Cocaine Screen POSITIVE H (Not Detect) U Marijuana (THC) Screen Not Detected (Not Detect) Ethyl Alcohol < 10 mg/dL 12/19/24 12/22/24 Range/Units 23:19 11:02 WBC 1.9 L (4.8-10.8) X10*3/uL RBC 3.75 L (4.20-5.50) X10*6/uL Hgb 10.5 L (12.0-16.0) g/dl Hct 32.6 L (37.0-47.0) % MCV 86.9 (80.0-98.0) fL MCH 28.0 (27.0-33.0) pg MCHC 32.2 (31.0-35.0) g/dl RDW 15.6 (11.0-16.0) % Plt Count 64 L D (160-400) X10*3/uL MPV 11.1 (9.4-12.3) fL Immature Gran % (Auto) 0.0 (0.0-0.4) % Neut % (Auto) 51.4 (45-73) % Lymph % (Auto) 37.0 (20-40) % Vigo % (Auto) 6.9 (2-11) % Eos % (Auto) 4.2 H (0-4) % Baso % (Auto) 0.5 (0-2) % Lymph # (Auto) 0.7 L (1.2-4.9) X10*3/uL Vigo # (Auto) 0.1 (0.1-1.2) X10*3/uL Eos # (Auto) 0.1 (0.0-0.4) X10*3/uL Baso # (Auto) 0.0 (0.0-0.2) X10*3/uL Abs Immat Gran (auto) 0.00 (0.00-0.03) X10*3/uL Absolute Neuts (auto) 1.0 L (2.0-8.3) x10*3/uL Absolute Nucleated RBC 0.000 (0.0-0.012) X10*3/uL Nucleated RBC % (auto) 0.0 (0.0-0.2) /100WBC Smear Tech's Comments VERIFIED Smear Path Review SEE NOTE Sodium 142 (135-145) mmol/L Potassium 4.5 (3.3-5.1) mmol/L Chloride 110 H (96-108) mmol/L Carbon Dioxide 27 (22-29) mmol/L Anion Gap 10 L (12-20) BUN 14 (9-16) mg/dL Creatinine 0.79 (0.5-1.4) mg/dL Estim Creat Clear Calc 100.9 Estimated GFR > 60 Random Glucose 111 (60-115) mg/dL Calcium 9.7 (8.4-10.2) mg/dL Total Bilirubin (0.0-1.0) mg/dL AST (5-31) U/L ALT (0-31) U/L Alkaline Phosphatase (39-117) U/L Total Protein (6.5-8.0) g/dL Albumin (3.5-5.0) g/dL Urine Color Urine Appearance Urine pH (5.0-9.0) Ur Specific Independence (1.005-1.025) Urine Protein (Neg-Trace) mg/dL Urine Glucose (UA) (Negative) mg/dL Urine Ketones (Negative) mg/dL Urine Blood (Negative) Urine Nitrite (Negative) Ur Leukocyte Esterase (Negative) Urine RBC (0-2) /HPF Urine WBC (0-5) /HPF Ur Squamous Epith Cells (0-2) /HPF Urine Bacteria (None Seen) Hyaline Casts (0-2) /LPF Urine Test (NEGATIVE) Salicylates < 5.0 L (15-30) mg/dL Urine Opiates Screen (Not Detect) Ur Buprenorphine Scrn (Not Detect) ng/mL Ur Oxycodone Screen (Not Detect) ng/mL Urine Methadone Screen (Not Detect) ng/mL Urine Fentanyl Screen (Not Detect) Acetaminophen < 3 (<30) mcg/mL Ur Barbiturates Screen (Not Detect) Ur Phencyclidine Scrn (Not Detect) Ur Amphetamines Screen (Not Detect) U Benzodiazepines Scrn (Not Detect) Urine Cocaine Screen (Not Detect) U Marijuana (THC) Screen (Not Detect) Ethyl Alcohol mg/dL Independent Interpretation I performed an independent interpretation of an: EKG (EKG shows sinus rhythm with a rate of 74, no evidence of acute ischemia, no ST elevation, no ectopy. QTC 470. No old for comparison.) Discharge Plan Discharge Clinical Impression: Drug overdose, Polysubstance use disorder, Cocaine use disorder, Fentanyl use disorder, severe Patient Disposition: Xfer Psychiatric Hosp Prescriptions: No Action clonidine HCl 0.1 mg tablet 0.1 mg PO TID promethazine 12.5 mg tablet 12.5 mg PO Q8H PRN (Reason: nausea) clonazepam 1 mg tablet 1 mg PO BID propranolol 10 mg tablet 10 mg PO TID gabapentin 800 mg tablet 800 mg PO TID doxepin 100 mg capsule 100 mg PO BEDTIME hydroxyzine HCl 25 mg tablet 25 mg PO TID bisacodyl 5 mg tablet,delayed release (DR/EC) 5 mg PO DAILY PRN (Reason: Constipation) sertraline 50 mg tablet 50 mg PO BID cholecalciferol (vitamin D3) [Vitamin D3] 25 mcg (1,000 unit) tablet 25 mcg PO DAILY methadone 10 mg Tablet 110 mg PO DAILY Rx Instructions: [facility] # [phone] Interventions: Acute Care Transfer Worksheet (ED) Last Done: 12/22/24 17:28 Discharge Date/Time: 12/22/24 17:31 Print Language: Slovenian
--- NOTE | 2024-12-19 20:45 | PC.NURSE ---
Pt asleep on bed in room. Respirations non-labored and even.
--- NOTE | 2024-12-19 21:16 | MHC.CARE ---
The CARE Team spoke w/ the pod nurse who confirmed patient has not provided a urine as of yet and has been asleep. Patient is not known to the CARE Team. She will not be seen until the a.m.
[2024-12-19 23:28] LABS: Appearance Urine Clear; Glucose Urine UA Negative (Negative); PH 6.5 (5.0-9.0); Specific Gravity - Urine 1.020 (1.005-1.025); UMIC TRIGGER UA YES
[2024-12-19 23:28] LABS: Hematocrit 28.9 % (37.0-47.0); Hemoglobin 9.5 g/dl (12.0-16.0); Imm Gran Abs Auto 0.00 X10*3/uL (0.00-0.03); Imm Gran Pct Auto 0.0 % (0.0-0.4); Lymphocytes Absolute Auto 0.6 X10*3/uL (1.2-4.9); MANUAL DIFF FLAG SCAN; Mean Corpuscular HGB Conc 32.9 g/dl (31.0-35.0); Mean Corpuscular Hemoglobin 27.9 pg (27.0-33.0); Mean Corpuscular Volume 84.8 fL (80.0-98.0); NRBC Abs Auto 0.000 X10*3/uL (0.0-0.012); NRBC Pct Auto 0.0 /100WBC (0.0-0.2); Red Blood Count 3.41 X10*6/uL (4.20-5.50); SCAN SMEAR FLAG 1
[2024-12-19 23:30] LABS: Platelet Count 46 X10*3/uL (160-400); White Blood Count 1.7 X10*3/uL (4.8-10.8)
[2024-12-19 23:30] LABS: UPreg QC Valid YES
[2024-12-19 23:40] LABS: Cannabinoid Screen Urine Not Detected (Not Detect)
[2024-12-19 23:42] LABS: Alanine Aminotransferase 24 U/L (0-31); Albumin Level 3.8 g/dL (3.5-5.0); Alkaline Phosphatase 102 U/L (39-117); Anion Gap 10 (12-20); Aspartate Amino Transferase 34 U/L (5-31); Blood Urea Nitrogen 14 mg/dL (9-16); Calcium 9.5 mg/dL (8.4-10.2); Carbon Dioxide 26 mmol/L (22-29); Chloride 109 mmol/L (96-108); Creatinine Clr Calc Pharmacy 99.6; Estimated Glomerular Filt Rate > 60; Potassium 4.1 mmol/L (3.3-5.1); Sodium 141 mmol/L (135-145); Total Protein 7.2 g/dL (6.5-8.0)
[2024-12-19 23:43] LABS: Acetaminophen LAB < 3 mcg/mL (<30); Salicylate < 5.0 mg/dL (15-30)
[2024-12-20] VITALS (7 sets, daily range): BP systolic 101–123; BP diastolic 64–79; PULSE 60–84; RESP 15–16; TEMP 36.8; O2SAT 98–99
--- NOTE | 2024-12-20 06:14 | PC.NURSE ---
Pt requesting methadone dose. Pt states she goes to [facility] in [place]. This RN spoke with Ze at [facility] in [place] to obtain methadone dosing. Per Ze, pt received 110mg po methadone on 12/19/24 @ 0925. Paperwork filled out and faxed to pharmacy.
--- NOTE | 2024-12-20 06:38 | HE.PHANOTE ---
METHADONE CONFIRMATION SHEET. PATIENT TAKES 110 MG FROM [facility]. LAST DOSE 12/19 @ 2612
[2024-12-20] MEDS: methADONE HCl 20 MG/2 ML ORAL.CONC 110 MG PO (06:49)
--- NOTE | 2024-12-20 07:18 | PC.NURSE ---
Assumed care of patient at 0645, patient appears to be in no apparent distress this am, calm and cooperative, offering no complaints to this RN. Continue plan of care for CARE team eval
--- NOTE | 2024-12-20 14:14 | PC.NURSE ---
Pt appears to be sleeping soundly, respirations are even and unlabored, no apparent distress is noted at this time
--- NOTE | 2024-12-20 16:59 | PC.NURSE ---
Daisy (Pts sister): [phone]
[2024-12-21] VITALS (7 sets, daily range): BP systolic 100–125; BP diastolic 59–88; PULSE 66–76; RESP 16–17; TEMP 36.6–37.1; O2SAT 94–98
--- NOTE | 2024-12-21 07:35 | PC.NURSE ---
Assumed care of patient at 0645, patient appears to be in no apparent distress at this time, sleeping, respirations even and unlabored. Continue plan of care for dual dx bedsearch
--- NOTE | 2024-12-21 07:43 | PHA.MEDREC ---
Addendum entered by Toni Simon PharmD 12/21/24 07:45: reviewed Original Note: Pharmacy Consult ? Medication Reconciliation Pharmacy has reviewed the medication reconciliation done by nursing. Claims match med list.
[2024-12-21] MEDS: methADONE HCl 20 MG/2 ML ORAL.CONC 110 MG PO (08:07)
--- NOTE | 2024-12-22 | ECG_ITS ---
Test Reason : R/O PROLONGED QT Blood Pressure : */* mmHG Vent. Rate : 59 BPM Atrial Rate : 59 BPM P-R Int : 166 ms QRS Dur : 104 ms QT Int : 444 ms P-R-T Axes : 41 58 52 degrees QTcB Int : 439 ms Sinus bradycardia Otherwise normal ECG When compared with ECG of 19-Dec-2024 23:28, No significant change was found Referred By: Avery Apodaca Electronically Signed By: Pepe Troncoso
[2024-12-22 06:00] VITALS: BP 105/63; PULSE 76; RESP 16; TEMP 36.6; O2SAT 98
[2024-12-22] MEDS: methADONE HCl 20 MG/2 ML ORAL.CONC 110 MG PO (09:09)
[2024-12-22 09:36] VITALS: BP 113/77; PULSE 68
[2024-12-22 09:43] VITALS: BP 113/77; PULSE 68; RESP 14; TEMP 36.6; O2SAT 98
[2024-12-22 11:17] LABS: Hematocrit 32.6 % (37.0-47.0); Hemoglobin 10.5 g/dl (12.0-16.0); Imm Gran Abs Auto 0.00 X10*3/uL (0.00-0.03); Imm Gran Pct Auto 0.0 % (0.0-0.4); Lymphocytes Absolute Auto 0.7 X10*3/uL (1.2-4.9); MANUAL DIFF FLAG SCAN; Mean Corpuscular HGB Conc 32.2 g/dl (31.0-35.0); Mean Corpuscular Hemoglobin 28.0 pg (27.0-33.0); Mean Corpuscular Volume 86.9 fL (80.0-98.0); NRBC Abs Auto 0.000 X10*3/uL (0.0-0.012); NRBC Pct Auto 0.0 /100WBC (0.0-0.2); Red Blood Count 3.75 X10*6/uL (4.20-5.50); SCAN SMEAR FLAG 1; White Blood Count 1.9 X10*3/uL (4.8-10.8)
[2024-12-22 11:18] LABS: Platelet Count 64 X10*3/uL (160-400)
[2024-12-22 11:32] LABS: Anion Gap 10 (12-20); Blood Urea Nitrogen 14 mg/dL (9-16); Calcium 9.7 mg/dL (8.4-10.2); Carbon Dioxide 27 mmol/L (22-29); Chloride 110 mmol/L (96-108); Creatinine Clr Calc Pharmacy 100.9; Estimated Glomerular Filt Rate > 60; Potassium 4.5 mmol/L (3.3-5.1); Sodium 142 mmol/L (135-145)
--- NOTE | 2024-12-22 12:17 | MHC.CARE ---
Patient has been accepted to [facility], located @ [address] [place] [id number] ETA 5pm , accepting is Dr Kp Vela F32.9 Unspecified Depressive D/o F11.20 Opioid use d/o F14.20 Cocaine Use d/o severe. Ambulance is picking up at 430pm.
--- NOTE | 2024-12-22 13:00 | PC.NURSE ---
[facility] called for report on patient leaving here for 1630 to be there for 5pm.
[2024-12-22 15:00] VITALS: BP 110/70; PULSE 63; RESP 15; TEMP 36.6; O2SAT 99
[2024-12-22 17:28] VITALS: BP 110/70; PULSE 63; RESP 15; TEMP 36.6; O2SAT 99
== END 2024-12-22 17:31 ==
PROVIDERS: Emergency Medicine; Physician Assistant; Emergency Provider Emergency Medicine
DX: T65.91XA Toxic effect of unspecified substance, accidental (unintentional), initial encounter (principal); Y92.9 Unspecified place or not applicable; R45.851 Suicidal ideations; F19.90 Other psychoactive substance use, unspecified, uncomplicated; F14.90 Cocaine use, unspecified, uncomplicated; F11.90 Opioid use, unspecified, uncomplicated; D64.9 Anemia, unspecified; Z79.899 Other long term (current) drug therapy
CPT/HCPCS: 36415; 80048; 80053; 80143; 80179; 80307; 81001; 81025; 85025; 93005; 99285; S9485

== ENCOUNTER → 2024-12-19 19:59 | Outpatient (BNV) | payer OTHER, SELFPAY | PROVIDERS: Emergency Provider Emergency Medicine; Visit Provider Internal Medicine | DX: R00.1 Bradycardia, unspecified (principal) | CPT/HCPCS: 93010 ==

== ENCOUNTER → 2024-12-22 11:08 | Outpatient (BNV) | payer OTHER, SELFPAY | PROVIDERS: Emergency Provider Emergency Medicine; Visit Provider Internal Medicine Cardiovascular Disease | DX: R00.1 Bradycardia, unspecified (principal) | CPT/HCPCS: 93010 ==

== ENCOUNTER 2024-12-30 11:05 | Emergency (ER) | payer OTHER, SELFPAY ==
[2024-12-30 11:08] VITALS: BP 124/62; PULSE 99; O2SAT 95
--- NOTE | 2024-12-30 11:11 | ED.GENADULT ---
HPI - General Adult General Chief complaint: ETOH/Substance Use Stated complaint: asleep/sidewalk ?SUB use, slurred speech, unsteady Time Seen by Provider: 12/30/24 11:11 Source: patient, EMS and old records reviewed Mode of arrival: EMS Limitations: no limitations History of Present Illness ED Provider: DR. Barahona HPI narrative: [age] year female on methadone with a known history of drug use, patient was found in the state unresponsive a by bystanders, patient admit to snorting 1 bag of heroin (over man) and also received her normal methadone. Patient declined SI or HI. No head injury or fall. Patient is lethargic but easily arousable and can provide history, stated that she is homeless. Related Data Home Medications ?Medication ?Instructions ?Recorded ?Confirmed bisacodyl 5 mg tablet,delayed 5 mg PO DAILY PRN Constipation 12/20/24 12/20/24 release cholecalciferol (vitamin D3) 25 25 mcg PO DAILY 12/20/24 12/20/24 mcg (1,000 unit) tablet (Vitamin D3) clonazepam 1 mg tablet 1 mg PO BID 12/20/24 12/20/24 clonidine HCl 0.1 mg tablet 0.1 mg PO TID 12/20/24 12/20/24 doxepin 100 mg capsule 100 mg PO BEDTIME 12/20/24 12/20/24 gabapentin 800 mg tablet 800 mg PO TID 12/20/24 12/20/24 hydroxyzine HCl 25 mg tablet 25 mg PO TID 12/20/24 12/20/24 methadone 10 mg tablet 110 mg PO DAILY 12/20/24 12/20/24 promethazine 12.5 mg tablet 12.5 mg PO Q8H PRN nausea 12/20/24 12/20/24 propranolol 10 mg tablet 10 mg PO TID 12/20/24 12/20/24 sertraline 50 mg tablet 50 mg PO BID 12/20/24 12/20/24 Allergies Allergy/AdvReac Type Severity Reaction Status Date / Time No Known Allergies Allergy Verified 12/30/24 11:13 Review of Systems Review of Systems: All other systems are reviewed and are negative Constitutional: Reports as per HPI and Reports no additional constitutional complaints Eyes: Reports as per HPI and Reports no additional eye complaints Reports system reviewed and no additional complaints, except as documented Cardiovascular: Reports as per HPI and Reports no additional cardiovascular complaints Respiratory: Reports as per HPI and Reports no additional respiratory complaints Gastrointestinal: Reports as per HPI and Reports no additional gastrointestinal complaints Genitourinary: Reports no additional female genitourinary complaints Musculoskeletal: Reports no additional musculoskeletal complaints Skin/Breast: Reports system reviewed and no additional complaints, except as docu Psychiatric: Reports no additional psychiatric complaints Endocrine: Reports no additional endocrine complaints Hematologic/Lymphatic: Reports no additional hematologic/lymphatic complaints Allergic/Immunologic: Reports no additional allergic/immunologic complaints Reports system reviewed and no additional complaints, except as documented and Reports Abnormal speech present [facility] Past Medical History Medical History Anxiety Depression PTSD (post-traumatic stress disorder) Social History Social History Unable to assess alcohol history related to: Unknown Alcohol intake: never Smoked in Last 30 Days: No Use of substances other than those prescribed or required for medical reasons: Yes Substance Use Type: Heroin Physical Exam ED Vital Signs: Vital Signs - 24 hr 12/30/24 11:12 12/30/24 12:16 Temperature 96.3 F L Pulse Rate 98 88 Respiratory Rate 18 14 Blood Pressure 106/59 L 99/58 L Pulse Oximetry 93 94 Oxygen Delivery Method Room Air Room Air BMI result Body Mass Index 27.5 Vital signs have been reviewed and appear to be correct. Blood pressure elevated. Heart rate normal. Respiratory rate normal. Temperature normal. Oxygen saturation normal. Appearance: Lethargic easily arousable, Alert. Oriented X3. No acute distress. Head: Normal external exam. Normocephalic. Atraumatic. No Arguello signs noted. No raccoon eyes noted Eyes: PERRLA. EOMI. Conjunctiva and sclera normal. Eyelids normal. ENT: TM's Normal. Pharynx normal. Uvula midline. Moist mucous membranes. No trismus noted. No drooling noted. No muffled voice noted. Neck: Normal inspection. Neck supple. FROM. No adenopathy. Thyroid Normal. No meningeal signs. No neck mass noted. CVS: Normal heart rate and rhythm. Heart sound normal. No murmurs noted. Pulses normal throughout. Respiratory: No respiratory distress. Painless inspiration. Breath sounds normal. No wheezes/rales/rhonchi noted. Chest nontender. No accessory muscle usage noted or decreased air movement noted. Abdomen: Soft and nontender. Bowel sounds normal in all 4 quadrants. No distention noted. No organomegaly noted. No visible injury noted. Back: No CVA tenderness. Full range of motion noted. Skin: Skin warm and dry. Normal skin color. Normal skin turgor. No rashes/lesions/lacerations noted. Extremities: No lower extremity edema. Extremities exhibit normal range of motion. Extremities nontender. Neuro: Oriented X 3. Cranial nerve exam: II-XII are grossly intact No motor deficit. No sensory deficit. Reflexes normal. Course Reevaluation(s) Reevaluation #1: Homeless, on methadone, admit to use heroin from the straight. Patient is lethargic but easily arousable maintaining VSS, will start physician observation now. Will keep monitoring, recovery team consultation, Narcan to go home. Time: 11:27 Reevaluation #2: Patient was evaluated by recovery team, patient desires to go to rehab, will be a rehab search. Time: 15:39 Medical Decision Making Differential Diagnosis Differential Diagnoses: The differential diagnosis associated with the presentation includes (Substance abuse, head injury, heroin overdose.) Admission/Observation Consideration of admission/observation: Escalation of care including admission/observation considered Discharge Plan Discharge Clinical Impression: Opiate overdose Prescriptions: No Action clonidine HCl 0.1 mg tablet 0.1 mg PO TID promethazine 12.5 mg tablet 12.5 mg PO Q8H PRN (Reason: nausea) clonazepam 1 mg tablet 1 mg PO BID propranolol 10 mg tablet 10 mg PO TID gabapentin 800 mg tablet 800 mg PO TID doxepin 100 mg capsule 100 mg PO BEDTIME hydroxyzine HCl 25 mg tablet 25 mg PO TID bisacodyl 5 mg tablet,delayed release (DR/EC) 5 mg PO DAILY PRN (Reason: Constipation) sertraline 50 mg tablet 50 mg PO BID cholecalciferol (vitamin D3) [Vitamin D3] 25 mcg (1,000 unit) tablet 25 mcg PO DAILY methadone 10 mg Tablet 110 mg PO DAILY Rx Instructions: [facility] # [phone] Print Language: Polish
[2024-12-30 11:12] VITALS: BP 106/59; PULSE 98; RESP 18; TEMP 35.7; O2SAT 93; BMI 27.5
--- NOTE | 2024-12-30 11:51 | PC.NURSE ---
Arrived via ems after being found sleeping on the sidewalk. Patient admits to sniffing superman heroin. Patient lethargic but is arrousable to verbal stimulation. changed in to hospital attire, security checked belongings for safety.
[2024-12-30 12:16] VITALS: BP 99/58; PULSE 88; RESP 14; O2SAT 94
--- NOTE | 2024-12-30 16:27 | PC.NURSE ---
Remains arousable to verbal stimulation. Ate sandwhich and crackers, 95% on RA.
[2024-12-30 16:28] VITALS: BP 98/72; PULSE 88; RESP 18; TEMP 37.1; O2SAT 95
[2024-12-30 17:09] LABS: MANUAL DIFF FLAG NO
[2024-12-30 17:22] LABS: Hematocrit 34.7 % (37.0-47.0); Hemoglobin 11.5 g/dl (12.0-16.0); Imm Gran Abs Auto 0.01 X10*3/uL (0.00-0.03); Imm Gran Pct Auto 0.3 % (0.0-0.4); Lymphocytes Absolute Auto 1.0 X10*3/uL (1.2-4.9); Mean Corpuscular HGB Conc 33.1 g/dl (31.0-35.0); Mean Corpuscular Hemoglobin 28.1 pg (27.0-33.0); Mean Corpuscular Volume 84.8 fL (80.0-98.0); NRBC Abs Auto 0.000 X10*3/uL (0.0-0.012); NRBC Pct Auto 0.0 /100WBC (0.0-0.2); Red Blood Count 4.09 X10*6/uL (4.20-5.50); White Blood Count 3.8 X10*3/uL (4.8-10.8)
[2024-12-30 17:26] LABS: Platelet Count 52 X10*3/uL (160-400)
[2024-12-30 17:27] LABS: Anion Gap 9 (12-20); Blood Urea Nitrogen 22 mg/dL (9-16); Calcium 10.7 mg/dL (8.4-10.2); Carbon Dioxide 25 mmol/L (22-29); Chloride 109 mmol/L (96-108); Creatinine Clr Calc Pharmacy 73.7; Estimated Glomerular Filt Rate > 60; Potassium 4.1 mmol/L (3.3-5.1); Sodium 139 mmol/L (135-145)
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
--- OUTSIDE RECORDS SUMMARY | 2024-12-30 17:53 | XMS_ITS | Encounter Summary ---
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 Social History Tobacco Use Types Packs/Day Years Used Date Smoking Tobacco: Never Assessed Comments Unknown Sex and Gender Information Value Date Recorded Sex Assigned at Not on file Legal Sex Female 12:23 PM EDT Gender Identity Not on file Sexual Orientation Not on file documented as of this encounter Plan of Treatment Not on file documented as of this encounter Procedures Procedure Name Priority Date/Time Associated Diagnosis Comments LIPID PANEL WITH REFLEX TO DIRECT LDL Routine 12/24/2024 7:00 AM EDT Other intermediate accountant (current) drug therapy HEMOGLOBIN A1C Routine 12/24/2024 7:00 AM EDT Other intermediate accountant (current) drug therapy GLUCOSE, RANDOM Routine 12/24/2024 7:00 AM EDT Other half-way (current) drug therapy documented in this encounter Results * Hemoglobin A1c (12/24/2024 7:00 AM EDT) Hemoglobin A1C 4.8 <6.5 % LAB CHEMISTRY METHOD 12/24/2024 2:36 PM EDT [facility] Mean Bld Glu Estim. 91 mg/dL LAB CHEMISTRY METHOD 12/24/2024 2:36 PM EDT [facility] Blood Venous blood specimen / Unknown Venipuncture / Unknown 12/24/2024 7:00 AM EDT 12/24/2024 12:25 PM EDT us Yadi Gonzalez GAUGE AND INSTRUMENT INSPECTOR LAB BLOOD ORDERABLES Final Resu lt [facility] [address] [place] [address], [place] [phone] * (ABNORMAL) Lipid panel with reflex to direct LDL (12/24/2024 7:00 AM EDT) Cholesterol 156 0 - 200 mg/dL LAB CHEMISTRY METHOD 12/24/2024 4:31 PM EDT [facility] Triglycerides 153(H) 0 - 150 mg/dL LAB CHEMISTRY METHOD 12/24/2024 4:31 PM EDT [facility] HDL 68 >=40 mg/dL LAB CHEMISTRY METHOD 12/24/2024 4:31 PM EDT [facility] LDL Calculated 57 0 - 100 mg/dL LAB CHEMISTRY METHOD 12/24/2024 4:31 PM EDT [facility] Comment:Estimated LDL Calcul ated using equation: Total cholesterol - HDL cholesterol - (Triglycerides/5) VLDL Cholesterol Volodymyr 30.6 mg/dL LAB CHEMISTRY METHOD 12/24/2024 4:31 PM EDT [facility] Non HDL Chol. (LDL+VLDL) 88 <145 mg/dL LAB CHEMISTRY METHOD 12/24/2024 4:31 PM EDT [facility] Chol/HDL Ratio 2.3 0.0 - 4.4 LAB CHEMISTRY METHOD 12/24/2024 4:31 PM [facility] Blood Venous blood specimen / Unknown Venipuncture / Unknown 12/24/2024 7:00 AM EDT 12/24/2024 12:25 PM EDT [facility] BLOOD ORDERABLES Final Resu lt Performing Organization Address City/[facility]/ZIP Co de Phone Number [facility] [address] [place] [address], [place] [phone] * Glucose, random (12/24/2024 7:00 AM EDT) Glucose 71 70 - 100 mg/dL LAB CHEMISTRY METHOD 12/24/2024 4:31 PM EDT [facility] Blood Venous blood specimen / Unknown Venipuncture / Unknown 12/24/2024 7:00 AM EDT 12/24/2024 12:25 PM EDT Yadi Gonzalez LAB BLOOD ORDERABLES Final Resu lt Performing Organization Address City/[facility]/ZIP Co de Phone Number [facility] [address] [place] [address], [place] [phone] documented in this encounter Visit Diagnoses Diagnosis Other half-way (current) drug therapy documented in this encounter Care Teams Women'S Lacrosse Coach Relationship Specialty Start Date End Date Rea Palencia FNP [address] [place] [phone] PCP - General Family Medicine 12/24/24 documented as of this encounter
[2024-12-30 18:00] VITALS: BP 102/62; PULSE 86; RESP 16; TEMP 36.6; O2SAT 94
[2024-12-30 20:27] LABS: Appearance Urine Clear; Glucose Urine UA Negative (Negative); PH 5.5 (5.0-9.0); Specific Gravity - Urine 1.020 (1.005-1.025)
[2024-12-30 20:35] LABS: UPreg QC Valid YES
[2024-12-30 20:36] LABS: Cannabinoid Screen Urine Not Detected (Not Detect)
--- NOTE | 2024-12-30 21:55 | PC.NURSE ---
This content writer assumed care of this Pt at this time. Pt ambulated into [facility] with slow steady gait.
[2024-12-30 22:56] VITALS: BP 99/57; PULSE 82; RESP 17; TEMP 36.5; O2SAT 96
--- NOTE | 2024-12-31 05:07 | PC.NURSE ---
Med rec done obtained by pharmacy and Pt able to confirm.
--- NOTE | 2024-12-31 09:21 | PC.NURSE ---
patient methadone verified with Yisel BETH at [facility], last dose received in clinic 12/30/2024 at 0602 110mg. form faxed to pharmacy, ED attending made aware
--- NOTE | 2024-12-31 09:22 | HE.PHANOTE ---
RE: METHADONE DOSING Last dose of methadone 110 mg was given on 12/30/24 @0602 at [facility] [phone] per IGNACIA Morillo.
[2024-12-31] MEDS: methADONE HCl 20 MG/2 ML ORAL.CONC 110 MG PO (09:40)
[2024-12-31 10:56] VITALS: BP 112/80; PULSE 85; RESP 18; TEMP 36.4; O2SAT 96
--- NOTE | 2024-12-31 12:32 | PC.NURSE ---
patient given back belongings and meds from pharmacy
== END 2024-12-31 12:32 | disposition skilled nursing facility (03) ==
PROVIDERS: Emergency Provider Emergency Medicine
DX: T40.601A Poisoning by unspecified narcotics, accidental (unintentional), initial encounter (principal); R40.4 Transient alteration of awareness; R26.81 Unsteadiness on feet; R47.81 Slurred speech; Y92.9 Unspecified place or not applicable; Z79.899 Other long term (current) drug therapy
CPT/HCPCS: 36415; 80048; 80307; 81003; 81025; 85025; 99284; S9485